=== PATIENT | male | born 1960 | race Caucasian/White ===

== ENCOUNTER 2020-08-19 06:00 | Inpatient (IN) ==
[2020-08-19] MEDS ORDERED: cefTRIAXone 1,000 MG in Water for inj. (sterile) 10 ML IVP ONE (06:05)
[2020-08-19] MEDS ORDERED: Pantoprazole 80 MG in 0.9 % Sodium Chloride 50 ML IVPB ONE (06:05)
[2020-08-19] MEDS ORDERED: 0.9 % Sodium Chloride 1,000 ML IVC ONE (06:05)
[2020-08-19] MEDS ORDERED: Octreotide 50 MCG/ML INJ IVP ONE (06:05)
[2020-08-19] MEDS ORDERED: Metoclopramide 10 MG/2 ML VIAL IVP ONE (06:07)
[2020-08-19] MEDS ORDERED: Pantoprazole 40 MG in 0.9 % Sodium Chloride Mini Bag 100 ML IVC SCH (06:15)
[2020-08-19 06:40] LABS: INR 1.4; Prothrombin Time 15.8 Seconds (9.4-12.1)
[2020-08-19 06:42] LABS: Activated Partial Thrombo Time 27.2 Seconds (26.0-36.0); Basophils # 0.2 K/mcL (0.0-0.2); Basophils % 2.3 %; Eosinophils # 0.2 K/mcL (0.0-0.6); Eosinophils % 2.4 %; Hematocrit 23.4 % (37.5-50.1); Immature Granulocytes % 0.6 % (0-4); Lymphocytes # 1.1 K/mcL (0.6-4.6); Lymphocytes % 12.6 %; Mean Corpuscular HGB Conc 30.3 g/dL (31.6-35.5); Mean Corpuscular Hemoglobin 26.2 pg (28.0-33.3); Mean Corpuscular Volume 86.3 fL (83.0-100.0); Mean Platelet Volume 9.7 fL (9.4-12.4); Monocytes # 1.1 K/mcL (0.0-1.3); Monocytes % 13.1 %; Neutrophils # 5.8 K/mcL (1.6-8.9); Nucleated Red Blood Cells 0.2 /100 WBC (0); Platelet Count 158 K/mcL (140-400); Red Blood Count 2.71 M/mcL (4.19-5.50); Red Cell Distribution Width 16.2 % (11.5-14.5); White Blood Count 8.4 K/mcL (4.3-11.1)
[2020-08-19 06:43] LABS: Hemoglobin 7.1 g/dL (12.9-16.9)
[2020-08-19] MEDS ORDERED: Octreotide 400 MCG in 0.9 % Sodium Chloride 100 ML IVC SCH (07:00)
[2020-08-19 07:01] LABS: Alanine Aminotransferase 70 Units/L (7-52); Albumin 2.7 g/dL (3.5-5.7); Albumin/Globulin Ratio 0.7 (1.1-2.2); Alkaline Phosphatase 109 Units/L (34-104); Aspartate Amino Transferase 135 Units/L (13-39); BUN/Creatinine Ratio 12 (6-26); Bilirubin,Total 2.1 mg/dL (0.3-1.0); Blood Urea Nitrogen 13 mg/dL (8-23); Calcium 8.2 mg/dL (8.6-10.3); Carbon Dioxide 23 mEq/L (23-29); Chloride 103 mEq/L (98-107); Globulin 3.9 g/dL (2.4-3.5); Glucose 132 mg/dL (70-105); Lipase 53 Units/L (11-82); Magnesium 1.9 mg/dL (1.6-2.6); Osmolality,Calculated 286 (280-300); Sodium 137 mEq/L (136-145); Total Protein 6.6 g/dL (6.4-8.9); Troponin I < 0.03 ng/mL (< 0.04); eGFR For African Americans > 60 (> 60); eGFR For Non-African Americans > 60 (> 60)
[2020-08-19] MEDS ORDERED: 0.9 % Sodium Chloride 250 ML ONE ×2 (08:14→14:22)
[2020-08-19] MEDS ORDERED: Ondansetron 4 MG/2 ML VIAL IVP PRN (08:46)
[2020-08-19] MEDS ORDERED: Ringers Solution, Lactated 1,000 ML IVC ONE ×2 (08:50→15:45)
[2020-08-19 12:22] LABS: Hemoglobin 7.3 g/dL (12.9-16.9); Mean Corpuscular HGB Conc 30.4 g/dL (31.6-35.5); Mean Corpuscular Hemoglobin 26.7 pg (28.0-33.3); Mean Corpuscular Volume 87.9 fL (83.0-100.0); Mean Platelet Volume 9.8 fL (9.4-12.4); Platelet Count 124 K/mcL (140-400); Red Blood Count 2.73 M/mcL (4.19-5.50); White Blood Count 9.2 K/mcL (4.3-11.1)
[2020-08-19] MEDS ORDERED: Lidocaine -MPF 2% 2 ML VIAL ONE (13:28)
[2020-08-19] MEDS ORDERED: *HR* PHENYLEPHRINE 1,000 MCG/10 ML SYRINGE IVP ONE (13:28)
[2020-08-19] MEDS ORDERED: Nitroglycerin 0.4 MG TAB.SUBL SL PRN (15:46)
[2020-08-19] MEDS: *HR* OxyCODONE Immed Rel 5 MG TABLET PO PRN ×2 (15:55→20:56)
[2020-08-19] MEDS: Lactulose Oral Soln 20 GM/30 ML UDC PO SCH (20:56)
[2020-08-19] MEDS ORDERED: *HR* LORazepam 2 MG/ML VIAL IVP PRN ×3 (22:18)
[2020-08-19] MEDS: Octreotide 400 MCG in 0.9 % Sodium Chloride 100 ML IVC SCH (22:40)
[2020-08-20 02:20] LABS: Hematocrit 26.3 % (37.5-50.1); Hemoglobin 8.2 g/dL (12.9-16.9); Mean Corpuscular HGB Conc 31.2 g/dL (31.6-35.5); Mean Corpuscular Hemoglobin 27.4 pg (28.0-33.3); Mean Platelet Volume 10.3 fL (9.4-12.4); Platelet Count 124 K/mcL (140-400); Red Blood Count 2.99 M/mcL (4.19-5.50); Red Cell Distribution Width 15.9 % (11.5-14.5); White Blood Count 11.9 K/mcL (4.3-11.1)
[2020-08-20 02:23] LABS: INR 1.4; Prothrombin Time 16.2 Seconds (9.4-12.1)
[2020-08-20 02:41] LABS: Alanine Aminotransferase 192 Units/L (7-52); Albumin 2.9 g/dL (3.5-5.7); Albumin/Globulin Ratio 0.7 (1.1-2.2); Alkaline Phosphatase 102 Units/L (34-104); Aspartate Amino Transferase 438 Units/L (13-39); BUN/Creatinine Ratio 24 (6-26); Bilirubin,Total 3.7 mg/dL (0.3-1.0); Blood Urea Nitrogen 18 mg/dL (8-23); Calcium 7.8 mg/dL (8.6-10.3); Carbon Dioxide 23 mEq/L (23-29); Chloride 105 mEq/L (98-107); Globulin 4.1 g/dL (2.4-3.5); Glucose 141 mg/dL (70-105); Osmolality,Calculated 282 (280-300); Potassium 4.3 mEq/L (3.5-5.1); Sodium 134 mEq/L (136-145); eGFR For African Americans > 60 (> 60); eGFR For Non-African Americans > 60 (> 60)
[2020-08-20] MEDS: *HR* OxyCODONE Immed Rel 5 MG TABLET PO PRN (06:27)
[2020-08-20] MEDS: Thiamine (B-1) 100 MG TABLET PO SCH (07:57)
[2020-08-20] MEDS: Lactulose Oral Soln 20 GM/30 ML UDC PO SCH ×2 (07:57→20:38)
[2020-08-20] MEDS: Vitamin B Complex/Vit C/Vit E 1 EACH TABLET PO SCH (07:57)
[2020-08-20] MEDS: cefTRIAXone 1,000 MG in Water for inj. (sterile) 10 ML IVP SCH (07:57)
[2020-08-20] MEDS: Octreotide 400 MCG in 0.9 % Sodium Chloride 100 ML IVC SCH ×2 (07:58→16:47)
[2020-08-20 09:40] LABS: Hematocrit 24.6 % (37.5-50.1); Hemoglobin 7.8 g/dL (12.9-16.9)
[2020-08-20] MEDS: Folic Acid 1 MG TABLET PO SCH (10:14)
[2020-08-20 14:55] LABS: Hematocrit 24.6 % (37.5-50.1); Hemoglobin 7.8 g/dL (12.9-16.9)
[2020-08-20 21:51] LABS: Hematocrit 24.3 % (37.5-50.1); Hemoglobin 7.6 g/dL (12.9-16.9)
[2020-08-21] MEDS: Octreotide 400 MCG in 0.9 % Sodium Chloride 100 ML IVC SCH ×2 (03:38→13:56)
[2020-08-21 05:43] LABS: INR 1.5; Prothrombin Time 17.5 Seconds (9.4-12.1)
[2020-08-21 06:02] LABS: Alanine Aminotransferase 169 Units/L (7-52); Albumin 2.6 g/dL (3.5-5.7); Albumin/Globulin Ratio 0.7 (1.1-2.2); Alkaline Phosphatase 98 Units/L (34-104); Aspartate Amino Transferase 265 Units/L (13-39); BUN/Creatinine Ratio 19 (6-26); Bilirubin,Direct 1.6 mg/dL (0.0-0.2); Bilirubin,Indirect 2.4 mg/dL (0.0-1.0); Blood Urea Nitrogen 14 mg/dL (8-23); Calcium 7.7 mg/dL (8.6-10.3); Carbon Dioxide 24 mEq/L (23-29); Chloride 104 mEq/L (98-107); Globulin 3.6 g/dL (2.4-3.5); Glucose 134 mg/dL (70-105); Osmolality,Calculated 276 (280-300); Potassium 3.7 mEq/L (3.5-5.1); Sodium 132 mEq/L (136-145); Total Protein 6.2 g/dL (6.4-8.9); eGFR For African Americans > 60 (> 60); eGFR For Non-African Americans > 60 (> 60)
[2020-08-21 06:35] LABS: Hemoglobin 7.1 g/dL (12.9-16.9)
[2020-08-21 06:37] LABS: Basophils # 0.1 K/mcL (0.0-0.2); Basophils % 0.8 %; Eosinophils # 0.1 K/mcL (0.0-0.6); Hematocrit 23.2 % (37.5-50.1); Immature Platelets 4.3 % (1.1-6.1); Lymphocytes # 1.2 K/mcL (0.6-4.6); Lymphocytes % 9.5 %; Mean Corpuscular HGB Conc 30.6 g/dL (31.6-35.5); Mean Corpuscular Hemoglobin 27.3 pg (28.0-33.3); Mean Corpuscular Volume 89.2 fL (83.0-100.0); Mean Platelet Volume 10.2 fL (9.4-12.4); Monocytes # 1.9 K/mcL (0.0-1.3); Monocytes % 15.5 %; Neutrophils # 8.8 K/mcL (1.6-8.9); Red Cell Distribution Width 16.9 % (11.5-14.5); Segmented Neutrophils % 72.2 %; White Blood Count 12.2 K/mcL (4.3-11.1)
[2020-08-21 06:55] LABS: Platelet Count 70 K/mcL (140-400); Platelet Estimate Slight Decrease (Normal)
[2020-08-21] MEDS: ARIPiprazole 2 MG TABLET PO SCH (08:08)
[2020-08-21] MEDS: Folic Acid 1 MG TABLET PO SCH (08:08)
[2020-08-21] MEDS: Vitamin B Complex/Vit C/Vit E 1 EACH TABLET PO SCH (08:08)
[2020-08-21] MEDS: Thiamine (B-1) 100 MG TABLET PO SCH (08:08)
[2020-08-21] MEDS: cefTRIAXone 1,000 MG in Water for inj. (sterile) 10 ML IVP SCH (08:09)
[2020-08-21] MEDS: Lactulose Oral Soln 20 GM/30 ML UDC PO SCH ×2 (08:10→20:21)
[2020-08-21] MEDS: *HR* OxyCODONE Immed Rel 5 MG TABLET PO PRN ×3 (08:13→20:21)
[2020-08-21 13:22] LABS: Hematocrit 23.3 % (37.5-50.1); Hemoglobin 7.2 g/dL (12.9-16.9)
[2020-08-21 20:21] LABS: Hemoglobin 7.4 g/dL (12.9-16.9)
[2020-08-22] MEDS: *HR* OxyCODONE Immed Rel 5 MG TABLET PO PRN ×3 (01:40→20:45)
[2020-08-22] MEDS: Octreotide 400 MCG in 0.9 % Sodium Chloride 100 ML IVC SCH ×4 (02:22→18:21)
[2020-08-22 05:41] LABS: BUN/Creatinine Ratio 18 (6-26); Blood Urea Nitrogen 13 mg/dL (8-23); Calcium 7.4 mg/dL (8.6-10.3); Carbon Dioxide 24 mEq/L (23-29); Chloride 101 mEq/L (98-107); Glucose 113 mg/dL (70-105); Osmolality,Calculated 269 (280-300); Potassium 3.6 mEq/L (3.5-5.1); Sodium 129 mEq/L (136-145); eGFR For African Americans > 60 (> 60); eGFR For Non-African Americans > 60 (> 60)
[2020-08-22] MEDS: cefTRIAXone 1,000 MG in Water for inj. (sterile) 10 ML IVP SCH (08:11)
[2020-08-22] MEDS: Folic Acid 1 MG TABLET PO SCH (08:11)
[2020-08-22] MEDS: Vitamin B Complex/Vit C/Vit E 1 EACH TABLET PO SCH (08:11)
[2020-08-22] MEDS: Thiamine (B-1) 100 MG TABLET PO SCH (08:11)
[2020-08-22] MEDS: Lactulose Oral Soln 20 GM/30 ML UDC PO SCH (08:11)
[2020-08-22] MEDS: ARIPiprazole 2 MG TABLET PO SCH (08:11)
[2020-08-22 09:07] LABS: VBG Ionized Calcium 1.04 mmol/L (1.15-1.35)
[2020-08-22] MEDS ORDERED: 0.9 % Sodium Chloride 250 ML IVC SCH (12:45)
[2020-08-22 12:52] LABS: Hematocrit 23.9 % (37.5-50.1); Hemoglobin 7.3 g/dL (12.9-16.9)
[2020-08-22] MEDS ORDERED: Calcium Gluconate 1gm/50mL 1 GM/50 ML BAG IVPB ONE (17:25)
[2020-08-22 22:07] LABS: Hematocrit 26.7 % (37.5-50.1); Hemoglobin 8.4 g/dL (12.9-16.9)
[2020-08-23 01:29] LABS: Eosinophils % 2.7 %; Hemoglobin 7.9 g/dL (12.9-16.9); Red Cell Distribution Width 17.1 % (11.5-14.5); Segmented Neutrophils % 70.4 %
[2020-08-23 01:31] LABS: Basophils # 0.1 K/mcL (0.0-0.2); Basophils % 1.1 %; Eosinophils # 0.3 K/mcL (0.0-0.6); Hematocrit 25.2 % (37.5-50.1); Immature Granulocytes % 0.7 % (0-4); Immature Platelets 3.2 % (1.1-6.1); Lymphocytes # 1.3 K/mcL (0.6-4.6); Mean Corpuscular HGB Conc 31.3 g/dL (31.6-35.5); Mean Corpuscular Hemoglobin 28.4 pg (28.0-33.3); Mean Corpuscular Volume 90.6 fL (83.0-100.0); Mean Platelet Volume 10.4 fL (9.4-12.4); Monocytes # 1.6 K/mcL (0.0-1.3); Monocytes % 14.1 %; Nucleated Red Blood Cells 0.3 /100 WBC (0); Platelet Count 102 K/mcL (140-400); Red Blood Count 2.78 M/mcL (4.19-5.50); White Blood Count 11.4 K/mcL (4.3-11.1)
[2020-08-23 01:49] LABS: BUN/Creatinine Ratio 15 (6-26); Blood Urea Nitrogen 11 mg/dL (8-23); Calcium 7.6 mg/dL (8.6-10.3); Carbon Dioxide 26 mEq/L (23-29); Chloride 99 mEq/L (98-107); Glucose 112 mg/dL (70-105); Osmolality,Calculated 268 (280-300); Potassium 3.3 mEq/L (3.5-5.1); Sodium 129 mEq/L (136-145); eGFR For African Americans > 60 (> 60); eGFR For Non-African Americans > 60 (> 60)
[2020-08-23] MEDS: *HR* OxyCODONE Immed Rel 5 MG TABLET PO PRN (04:45)
[2020-08-23] MEDS: Octreotide 400 MCG in 0.9 % Sodium Chloride 100 ML IVC SCH ×2 (04:48→07:43)
[2020-08-23] MEDS: Lactulose Oral Soln 20 GM/30 ML UDC PO SCH ×2 (07:44→09:29)
[2020-08-23] MEDS: cefTRIAXone 1,000 MG in Water for inj. (sterile) 10 ML IVP SCH (09:29)
[2020-08-23] MEDS: Thiamine (B-1) 100 MG TABLET PO SCH (09:30)
[2020-08-23] MEDS: Vitamin B Complex/Vit C/Vit E 1 EACH TABLET PO SCH (09:31)
[2020-08-23] MEDS: Folic Acid 1 MG TABLET PO SCH (09:31)
[2020-08-23] MEDS: ARIPiprazole 2 MG TABLET PO SCH (09:31)
[2020-08-23 10:26] VITALS: BP 116/64
== END 2020-08-23 14:15 | disposition home or self-care (01) | DRG 432 ==
LOC: EMEROOARM 06:00 → 3ANU 06:00 → SUATTDRO 08-20 14:15
PROVIDERS: ADMIT Internal Medicine; ATTEND General Practice

== ENCOUNTER 2020-08-26 03:50 | Observation (INO) ==
[2020-08-26 04:35] LABS: Basophils # 0.2 K/mcL (0.0-0.2); Basophils % 1.5 %; Eosinophils # 0.5 K/mcL (0.0-0.6); Eosinophils % 4.7 %; Hematocrit 29.6 % (37.5-50.1); Hemoglobin 9.2 g/dL (12.9-16.9); Immature Granulocytes % 1.3 % (0-4); Lymphocytes # 2.1 K/mcL (0.6-4.6); Lymphocytes % 21.6 %; Mean Corpuscular HGB Conc 31.1 g/dL (31.6-35.5); Mean Corpuscular Hemoglobin 27.7 pg (28.0-33.3); Mean Corpuscular Volume 89.2 fL (83.0-100.0); Mean Platelet Volume 9.2 fL (9.4-12.4); Monocytes # 1.4 K/mcL (0.0-1.3); Monocytes % 14.2 %; Neutrophils # 5.6 K/mcL (1.6-8.9); Nucleated Red Blood Cells 0.2 /100 WBC (0); Platelet Count 176 K/mcL (140-400); Red Blood Count 3.32 M/mcL (4.19-5.50); Segmented Neutrophils % 56.7 %; White Blood Count 9.9 K/mcL (4.3-11.1)
[2020-08-26 04:55] LABS: Alanine Aminotransferase 74 Units/L (7-52); Albumin/Globulin Ratio 0.6 (1.1-2.2); Alkaline Phosphatase 113 Units/L (34-104); Aspartate Amino Transferase 68 Units/L (13-39); BUN/Creatinine Ratio 9 (6-26); Bilirubin,Total 2.9 mg/dL (0.3-1.0); Blood Urea Nitrogen 8 mg/dL (8-23); Calcium 8.2 mg/dL (8.6-10.3); Carbon Dioxide 22 mEq/L (23-29); Chloride 102 mEq/L (98-107); Globulin 4.7 g/dL (2.4-3.5); Glucose 98 mg/dL (70-105); Osmolality,Calculated 276 (280-300); Potassium 3.3 mEq/L (3.5-5.1); Sodium 134 mEq/L (136-145); Total Protein 7.7 g/dL (6.4-8.9); eGFR For African Americans > 60 (> 60); eGFR For Non-African Americans > 60 (> 60)
[2020-08-26 05:04] LABS: INR 1.3; Prothrombin Time 14.5 Seconds (9.4-12.1); Troponin I < 0.03 ng/mL (< 0.04)
[2020-08-26 05:07] LABS: Activated Partial Thrombo Time 27.5 Seconds (26.0-36.0)
[2020-08-26] MEDS ORDERED: Potassium Chloride Elixir 20 MEQ/15 ML UDC PO ONE (05:07)
[2020-08-26] MEDS ORDERED: Isovue-370 500 ML BOTTLE IVP ONE (05:10)
[2020-08-26 05:28] LABS: Lipase 71 Units/L (11-82)
[2020-08-26] MEDS ORDERED: Naloxone 0.4 MG/ML INJ IVP PRN (06:39)
[2020-08-26] MEDS ORDERED: Ondansetron 4 MG/2 ML VIAL IVP PRN (06:39)
[2020-08-26 07:23] LABS: Adenovirus Not Detected (Not Detect); Coronavirus 229E Not Detected (Not Detect); Coronavirus HKU1 Not Detected (Not Detect); Coronavirus NL63 Not Detected (Not Detect); Coronavirus OC43 Not Detected (Not Detect); Human Metapneumovirus Not Detected (Not Detect); Human Rhinovirus/Enterovirus Not Detected (Not Detect); SARS-CoV-2 Not Detected (Not Detect)
[2020-08-26 07:24] LABS: Bordetella Pertussis Not Detected (Not Detect); Chlamydophila pneumoniae Not Detected (Not Detect); Influenza A Subtype 2009 H1 Not Detected (Not Detect); Influenza B Not Detected (Not Detect); Mycoplasma pneumoniae Not Detected (Not Detect); Parainfluenza Virus 1 Not Detected (Not Detect); Parainfluenza Virus 2 Not Detected (Not Detect); Parainfluenza Virus 3 Not Detected (Not Detect); Parainfluenza Virus 4 Not Detected (Not Detect); Respiratory Syncytial Virus Not Detected (Not Detect)
[2020-08-26] MEDS ORDERED: Furosemide 40 MG TABLET PO SCH (09:00)
[2020-08-26] MEDS ORDERED: Furosemide 20 MG TABLET PO ONE (12:15)
[2020-08-26] MEDS: Albumin 25% 25gram/100mL 25 GM/100 ML IV.SOLN IVPB SCH ×4 (12:31→22:54)
[2020-08-26 13:45] LABS: RBC,Peritoneal Fluid < 2000 RBC/mcL
[2020-08-26 14:24] LABS: Amylase,Peritoneal Fluid < 10 Units/L (No Ref Range); Glucose,Peritoneal Fluid 104 mg/dL (No Ref Range); LDH,Peritoneal Fluid 35 Units/L (No Ref Range); Total Protein,Peritoneal Fluid < 2.0 g/dL
[2020-08-26 14:54] LABS: Basophils,Peritoneal Fluid 0 %
[2020-08-26 14:55] LABS: Appearance of Peritoneal Fl CLEAR (Clear)
[2020-08-26 17:07] LABS: % Iron Saturation 4 % (20-55); Iron 12 mcg/dL (65-175); Transferrin 242 mg/dL (203-362)
[2020-08-26 17:25] LABS: Ferritin 24 ng/mL (20-250)
[2020-08-26 17:30] LABS: Hepatitis B Surface Antigen Nonreactive (Nonreactive)
[2020-08-26 18:00] LABS: Hepatitis C Virus Antibody Nonreactive (Nonreactive)
[2020-08-26 18:02] LABS: Hepatitis A Antibody IgM Nonreactive (Nonreactive)
[2020-08-26 18:04] LABS: Hepatitis B Core IgM Nonreactive (Nonreactive)
[2020-08-26] MEDS: *HR* Heparin 5,000 UNIT/ML VIAL SQ SCH (18:05)
[2020-08-27 05:31] LABS: Basophils # 0.1 K/mcL (0.0-0.2); Eosinophils # 0.2 K/mcL (0.0-0.6); Eosinophils % 3.6 %; Hematocrit 25.1 % (37.5-50.1); Hemoglobin 7.7 g/dL (12.9-16.9); Immature Granulocytes % 0.3 % (0-4); Lymphocytes # 1.1 K/mcL (0.6-4.6); Lymphocytes % 17.7 %; Mean Corpuscular HGB Conc 30.7 g/dL (31.6-35.5); Mean Corpuscular Hemoglobin 27.4 pg (28.0-33.3); Mean Corpuscular Volume 89.3 fL (83.0-100.0); Monocytes # 0.9 K/mcL (0.0-1.3); Monocytes % 14.7 %; Platelet Count 100 K/mcL (140-400); Red Blood Count 2.81 M/mcL (4.19-5.50); Red Cell Distribution Width 17.6 % (11.5-14.5); Segmented Neutrophils % 62.7 %; White Blood Count 6.3 K/mcL (4.3-11.1)
[2020-08-27 05:53] LABS: Alanine Aminotransferase 46 Units/L (7-52); Albumin 3.3 g/dL (3.5-5.7); Albumin/Globulin Ratio 0.9 (1.1-2.2); Alkaline Phosphatase 90 Units/L (34-104); Aspartate Amino Transferase 51 Units/L (13-39); BUN/Creatinine Ratio 12 (6-26); Bilirubin,Total 3.1 mg/dL (0.3-1.0); Blood Urea Nitrogen 9 mg/dL (8-23); Calcium 8.4 mg/dL (8.6-10.3); Carbon Dioxide 27 mEq/L (23-29); Chloride 103 mEq/L (98-107); Globulin 3.6 g/dL (2.4-3.5); Glucose 102 mg/dL (70-105); Osmolality,Calculated 281 (280-300); Potassium 3.5 mEq/L (3.5-5.1); Sodium 136 mEq/L (136-145); Total Protein 6.9 g/dL (6.4-8.9); eGFR For African Americans > 60 (> 60); eGFR For Non-African Americans > 60 (> 60)
[2020-08-27] MEDS: *HR* Heparin 5,000 UNIT/ML VIAL SQ SCH ×2 (06:12→17:34)
[2020-08-27] MEDS: Albumin 25% 25gram/100mL 25 GM/100 ML IV.SOLN IVPB SCH ×4 (07:44→22:29)
[2020-08-27] MEDS: Furosemide 40 MG TABLET PO SCH (07:44)
[2020-08-27] MEDS ORDERED: Acetaminophen 325 MG TABLET PO PRN (20:57)
[2020-08-28] MEDS: *HR* Heparin 5,000 UNIT/ML VIAL SQ SCH (05:24)
[2020-08-28 05:25] LABS: Hematocrit 24.6 % (37.5-50.1); Hemoglobin 7.6 g/dL (12.9-16.9); Immature Platelets 2.9 % (1.1-6.1); Mean Corpuscular HGB Conc 30.9 g/dL (31.6-35.5); Mean Corpuscular Hemoglobin 27.2 pg (28.0-33.3); Mean Corpuscular Volume 88.2 fL (83.0-100.0); Mean Platelet Volume 9.4 fL (9.4-12.4); Red Blood Count 2.79 M/mcL (4.19-5.50); Red Cell Distribution Width 17.3 % (11.5-14.5); White Blood Count 5.1 K/mcL (4.3-11.1)
[2020-08-28 05:44] LABS: BUN/Creatinine Ratio 11 (6-26); Blood Urea Nitrogen 8 mg/dL (8-23); Calcium 8.8 mg/dL (8.6-10.3); Carbon Dioxide 24 mEq/L (23-29); Chloride 103 mEq/L (98-107); Glucose 100 mg/dL (70-105); Osmolality,Calculated 280 (280-300); Potassium 3.2 mEq/L (3.5-5.1); Sodium 136 mEq/L (136-145); eGFR For African Americans > 60 (> 60); eGFR For Non-African Americans > 60 (> 60)
[2020-08-28 07:27] VITALS: BP 105/62
[2020-08-28] MEDS: Furosemide 40 MG TABLET PO SCH (08:22)
[2020-08-28] MEDS: Albumin 25% 25gram/100mL 25 GM/100 ML IV.SOLN IVPB SCH ×2 (08:27→10:10)
[2020-08-28] MEDS ORDERED: Folic Acid 1 MG TABLET PO SCH (09:00)
[2020-08-28] MEDS ORDERED: Thiamine (B-1) 100 MG TABLET PO SCH (09:00)
[2020-08-28] MEDS ORDERED: Albumin 25% 25gram/100mL 25 GM/100 ML IV.SOLN IVPB SCH (20:00)
[2020-08-29 10:39] LABS: F-Actin (sm muscle) Ab IgG 22 Units (0-19)
[2020-08-29 11:26] LABS: Serine Protease-3 Antibody 6 AU/mL (0-19)
[2020-08-29 18:26] LABS: ANA IgG by ELISA NONE DETECTED (None Detected)
== END 2020-08-28 11:55 | disposition home or self-care (01) ==
LOC: SUATTDRO → 3ANU 03:50 → EMEROOARM 03:50 → SUATTDRO 07:56 → 3ANU 09:41
PROVIDERS: ADMIT Student in an Organized Health Care Education/Training Program; ATTEND Internal Medicine

== ENCOUNTER 2020-08-31 10:14 | Observation (INO) ==
[2020-08-31 11:33] LABS: Basophils # 0.1 K/mcL (0.0-0.2); Basophils % 1.6 %; Eosinophils # 0.3 K/mcL (0.0-0.6); Hemoglobin 8.7 g/dL (12.9-16.9); Immature Granulocytes % 0.5 % (0-4); Lymphocytes # 1.4 K/mcL (0.6-4.6); Lymphocytes % 18.1 %; Mean Corpuscular Hemoglobin 26.4 pg (28.0-33.3); Mean Corpuscular Volume 88.1 fL (83.0-100.0); Mean Platelet Volume 9.5 fL (9.4-12.4); Monocytes # 0.9 K/mcL (0.0-1.3); Monocytes % 11.5 %; Platelet Count 179 K/mcL (140-400); Red Blood Count 3.29 M/mcL (4.19-5.50); Red Cell Distribution Width 18.3 % (11.5-14.5); Segmented Neutrophils % 64.3 %; White Blood Count 7.7 K/mcL (4.3-11.1)
[2020-08-31 11:37] LABS: Alanine Aminotransferase 48 Units/L (7-52); Albumin 4.5 g/dL (3.5-5.7); Albumin/Globulin Ratio 1.1 (1.1-2.2); Alkaline Phosphatase 94 Units/L (34-104); Aspartate Amino Transferase 73 Units/L (13-39); BUN/Creatinine Ratio 8 (6-26); Bilirubin,Direct 0.8 mg/dL (0.0-0.2); Bilirubin,Indirect 1.1 mg/dL (0.0-1.0); Bilirubin,Total 1.9 mg/dL (0.3-1.0); Blood Urea Nitrogen 9 mg/dL (8-23); Calcium 9.5 mg/dL (8.6-10.3); Carbon Dioxide 24 mEq/L (23-29); Chloride 102 mEq/L (98-107); Globulin 4.1 g/dL (2.4-3.5); Glucose 145 mg/dL (70-105); Lipase 108 Units/L (11-82); Osmolality,Calculated 283 (280-300); Potassium 3.5 mEq/L (3.5-5.1); Sodium 136 mEq/L (136-145); Total Protein 8.6 g/dL (6.4-8.9); Troponin I < 0.03 ng/mL (< 0.04); eGFR For African Americans > 60 (> 60); eGFR For Non-African Americans > 60 (> 60)
[2020-08-31 11:43] LABS: INR 1.4; Prothrombin Time 15.8 Seconds (9.4-12.1)
[2020-08-31] MEDS ORDERED: 0.9 % Sodium Chloride 500 ML IVC ONE (11:53)
[2020-08-31 13:21] LABS: Bilirubin,Urine Negative (Negative); Blood,Urine Negative (Negative); Clarity,Urine Clear (Clear); Color,Urine Yellow (Yellow); Glucose,Urine (UA) Normal (Normal); Ketones,Urine Negative (Negative); Leukocyte Esterase,Urine Negative (Negative); Nitrite,Urine Negative (Negative); Protein,Urine Negative (Neg-Trace); Specific Gravity,Urine 1.018 (1.010-1.025)
[2020-08-31] MEDS ORDERED: Mag Hydrox/Al Hydrox/Simeth 30 ML UDC PO PRN (14:58)
[2020-08-31] MEDS ORDERED: *HR* HYDROcodone/Acet 5/325 mg TABLET PO PRN (14:58)
[2020-08-31] MEDS ORDERED: Naloxone 0.4 MG/ML INJ IVP PRN (14:58)
[2020-08-31] MEDS ORDERED: MOM Conc 10 ML UD.LIQ PO PRN (14:58)
[2020-08-31] MEDS ORDERED: Ondansetron 4 MG/2 ML VIAL IVP PRN (14:58)
[2020-08-31] MEDS ORDERED: Loratadine 10 MG TABLET PO PRN (14:59)
[2020-08-31] MEDS ORDERED: *HR* LORazepam 2 MG/ML VIAL IVP PRN ×2 (15:30)
[2020-08-31] MEDS: Lactulose Oral Soln 20 GM/30 ML UDC PO SCH (19:47)
[2020-09-01 02:37] LABS: Basophils # 0.1 K/mcL (0.0-0.2); Basophils % 1.1 %; Eosinophils # 0.2 K/mcL (0.0-0.6); Eosinophils % 3.3 %; Hemoglobin 8.6 g/dL (12.9-16.9); Immature Granulocytes % 0.4 % (0-4); Lymphocytes # 1.1 K/mcL (0.6-4.6); Lymphocytes % 14.4 %; Mean Corpuscular HGB Conc 30.7 g/dL (31.6-35.5); Mean Corpuscular Volume 88.1 fL (83.0-100.0); Mean Platelet Volume 9.2 fL (9.4-12.4); Monocytes # 0.9 K/mcL (0.0-1.3); Monocytes % 12.2 %; Platelet Count 132 K/mcL (140-400); Red Blood Count 3.18 M/mcL (4.19-5.50); Red Cell Distribution Width 18.2 % (11.5-14.5); Segmented Neutrophils % 68.6 %; White Blood Count 7.3 K/mcL (4.3-11.1)
[2020-09-01 02:40] LABS: BUN/Creatinine Ratio 10 (6-26); Blood Urea Nitrogen 8 mg/dL (8-23); Calcium 8.8 mg/dL (8.6-10.3); Carbon Dioxide 24 mEq/L (23-29); Chloride 106 mEq/L (98-107); Glucose 118 mg/dL (70-105); Magnesium 1.9 mg/dL (1.6-2.6); Osmolality,Calculated 283 (280-300); Phosphorous 2.2 mg/dL (2.7-4.5); Sodium 137 mEq/L (136-145); eGFR For African Americans > 60 (> 60); eGFR For Non-African Americans > 60 (> 60)
[2020-09-01] MEDS: *HR* LORazepam 2 MG/ML VIAL IVP PRN ×3 (05:03→20:31)
[2020-09-01] MEDS ORDERED: Furosemide 40 MG TABLET PO SCH (09:00)
[2020-09-01] MEDS: Lactulose Oral Soln 20 GM/30 ML UDC PO SCH ×2 (09:24→20:30)
[2020-09-01] MEDS: Cholecalciferol (D-3) 1,000 UNIT (25MCG) TABLET PO SCH (09:24)
[2020-09-01] MEDS: ARIPiprazole 2 MG TABLET PO SCH (09:24)
[2020-09-01] MEDS: Vitamin B Complex/Vit C/Vit E 1 EACH TABLET PO SCH (09:24)
[2020-09-01] MEDS: Thiamine (B-1) 100 MG TABLET PO SCH (09:25)
[2020-09-01] MEDS: Folic Acid 1 MG TABLET PO SCH (09:25)
[2020-09-01] MEDS: Albumin Human 5% 12.5 GM/250 ML IV.SOLN IVC SCH ×2 (10:32→14:39)
[2020-09-02] MEDS: *HR* LORazepam 2 MG/ML VIAL IVP PRN (04:44)
[2020-09-02] MEDS: Cholecalciferol (D-3) 1,000 UNIT (25MCG) TABLET PO SCH (08:08)
[2020-09-02] MEDS: Thiamine (B-1) 100 MG TABLET PO SCH (08:08)
[2020-09-02] MEDS: ARIPiprazole 2 MG TABLET PO SCH (08:08)
[2020-09-02] MEDS: Vitamin B Complex/Vit C/Vit E 1 EACH TABLET PO SCH (08:08)
[2020-09-02] MEDS: Lactulose Oral Soln 20 GM/30 ML UDC PO SCH (08:08)
[2020-09-02] MEDS: Folic Acid 1 MG TABLET PO SCH (08:08)
[2020-09-02] MEDS ORDERED: Albumin Human 5% 12.5 GM/250 ML IV.SOLN IVC SCH (08:15)
[2020-09-02 14:04] VITALS: BP 95/58
== END 2020-09-02 15:07 | disposition home or self-care (01) ==
LOC: 3ANU 10:14 → EMEROOARM 10:14 → SUATTDRO 14:16 → 3ANU 15:32
PROVIDERS: ADMIT Internal Medicine; ATTEND Internal Medicine

== ENCOUNTER 2020-09-09 06:18 | Inpatient (IN) ==
[2020-09-09] MEDS ORDERED: Ipratropium/Albuterol Neb 3 ML IH ONE (06:42)
[2020-09-09 07:00] LABS: Basophils # 0.2 K/mcL (0.0-0.2); Basophils % 1.6 %; Eosinophils # 0.3 K/mcL (0.0-0.6); Eosinophils % 2.2 %; Hematocrit 38.3 % (37.5-50.1); Hemoglobin 11.8 g/dL (12.9-16.9); Immature Granulocytes % 0.5 % (0-4); Mean Corpuscular HGB Conc 30.8 g/dL (31.6-35.5); Mean Corpuscular Hemoglobin 26.5 pg (28.0-33.3); Mean Corpuscular Volume 86.1 fL (83.0-100.0); Mean Platelet Volume 9.5 fL (9.4-12.4); Monocytes # 1.9 K/mcL (0.0-1.3); Monocytes % 14.9 %; Neutrophils # 8.2 K/mcL (1.6-8.9); Platelet Count 243 K/mcL (140-400); Red Blood Count 4.45 M/mcL (4.19-5.50); Red Cell Distribution Width 19.8 % (11.5-14.5); Segmented Neutrophils % 64.8 %; White Blood Count 12.6 K/mcL (4.3-11.1)
[2020-09-09 07:18] LABS: BUN/Creatinine Ratio 12 (6-26); Blood Urea Nitrogen 18 mg/dL (8-23); Carbon Dioxide 25 mEq/L (23-29); Chloride 93 mEq/L (98-107); Glucose 128 mg/dL (70-105); Osmolality,Calculated 272 (280-300); Potassium 4.1 mEq/L (3.5-5.1); Sodium 129 mEq/L (136-145); Troponin I < 0.03 ng/mL (< 0.04); eGFR For African Americans 56 (> 60); eGFR For Non-African Americans 46 (> 60)
[2020-09-09 07:25] LABS: Alanine Aminotransferase 54 Units/L (7-52); Albumin 4.7 g/dL (3.5-5.7); Albumin/Globulin Ratio 0.9 (1.1-2.2); Alkaline Phosphatase 115 Units/L (34-104); Amylase 33 Units/L (29-103); Aspartate Amino Transferase 86 Units/L (13-39); Bilirubin,Direct 1.2 mg/dL (0.0-0.2); Bilirubin,Indirect 3.3 mg/dL (0.0-1.0); Bilirubin,Total 4.5 mg/dL (0.3-1.0); Globulin 5.3 g/dL (2.4-3.5); Lipase 26 Units/L (11-82)
[2020-09-09 07:54] LABS: Adenovirus Not Detected (Not Detect); Bordetella Pertussis Not Detected (Not Detect); Chlamydophila pneumoniae Not Detected (Not Detect); Coronavirus 229E Not Detected (Not Detect); Coronavirus HKU1 Not Detected (Not Detect); Coronavirus NL63 Not Detected (Not Detect); Coronavirus OC43 Not Detected (Not Detect); Human Metapneumovirus Not Detected (Not Detect); Human Rhinovirus/Enterovirus Not Detected (Not Detect); Influenza A Subtype 2009 H1 Not Detected (Not Detect); Influenza B Not Detected (Not Detect); Mycoplasma pneumoniae Not Detected (Not Detect); Parainfluenza Virus 1 Not Detected (Not Detect); Parainfluenza Virus 2 Not Detected (Not Detect); Parainfluenza Virus 3 Not Detected (Not Detect); Parainfluenza Virus 4 Not Detected (Not Detect); Respiratory Syncytial Virus Not Detected (Not Detect); SARS-CoV-2 Not Detected (Not Detect)
[2020-09-09] MEDS ORDERED: 0.9 % Sodium Chloride 1,000 ML IVC ONE (08:01)
[2020-09-09] MEDS ORDERED: 0.9 % Sodium Chloride 1,000 ML ONE (08:07)
[2020-09-09 09:27] LABS: Bilirubin,Urine Negative (Negative); Blood,Urine Negative (Negative); Clarity,Urine Clear (Clear); Color,Urine Yellow (Yellow); Glucose,Urine (UA) Normal (Normal); Ketones,Urine Negative (Negative); Leukocyte Esterase,Urine Negative (Negative); Nitrite,Urine Negative (Negative); PH,Urine 6.5 pH Units (5.0-8.0); Protein,Urine Negative (Neg-Trace); Specific Gravity,Urine 1.008 (1.010-1.025); Urobilinogen,Urine Normal (Normal)
[2020-09-09] MEDS ORDERED: Naloxone 0.4 MG/ML INJ IVP PRN (10:38)
[2020-09-09] MEDS ORDERED: Ondansetron 4 MG/2 ML VIAL IVP PRN (10:38)
[2020-09-09] MEDS ORDERED: *HR* LORazepam 2 MG/ML VIAL IVP PRN ×3 (10:38)
[2020-09-09 13:56] LABS: BUN/Creatinine Ratio 13 (6-26); Blood Urea Nitrogen 19 mg/dL (8-23); Calcium 9.8 mg/dL (8.6-10.3); Carbon Dioxide 25 mEq/L (23-29); Chloride 96 mEq/L (98-107); Glucose 123 mg/dL (70-105); Osmolality,Calculated 274 (280-300); Potassium 3.6 mEq/L (3.5-5.1); Sodium 130 mEq/L (136-145); eGFR For African Americans > 60 (> 60); eGFR For Non-African Americans 50 (> 60)
[2020-09-09] MEDS: *HR* Heparin 5,000 UNIT/ML VIAL SQ SCH (17:27)
[2020-09-10] MEDS: Acetaminophen 325 MG TABLET PO PRN (04:41)
[2020-09-10] MEDS: *HR* Heparin 5,000 UNIT/ML VIAL SQ SCH ×2 (05:45→16:06)
[2020-09-10 07:09] LABS: Basophils # 0.2 K/mcL (0.0-0.2); Basophils % 1.8 %; Eosinophils # 0.2 K/mcL (0.0-0.6); Eosinophils % 2.4 %; Hematocrit 32.7 % (37.5-50.1); Hemoglobin 10.4 g/dL (12.9-16.9); Immature Granulocytes % 0.3 % (0-4); Lymphocytes # 1.7 K/mcL (0.6-4.6); Lymphocytes % 19.1 %; Mean Corpuscular HGB Conc 31.8 g/dL (31.6-35.5); Mean Corpuscular Hemoglobin 27.2 pg (28.0-33.3); Mean Corpuscular Volume 85.6 fL (83.0-100.0); Monocytes # 1.3 K/mcL (0.0-1.3); Monocytes % 14.4 %; Neutrophils # 5.5 K/mcL (1.6-8.9); Platelet Count 134 K/mcL (140-400); Red Blood Count 3.82 M/mcL (4.19-5.50); Red Cell Distribution Width 19.4 % (11.5-14.5); White Blood Count 8.9 K/mcL (4.3-11.1)
[2020-09-10] MEDS: Thiamine (B-1) 100 MG TABLET PO SCH (07:20)
[2020-09-10] MEDS: Multivit/Ca/Min/Fe/FA 1 TAB TABLET PO SCH (07:20)
[2020-09-10] MEDS: Folic Acid 1 MG TABLET PO SCH (07:21)
[2020-09-10 07:25] LABS: Albumin/Globulin Ratio 0.9 (1.1-2.2); Bilirubin,Indirect 3.1 mg/dL (0.0-1.0); Bilirubin,Total 4.1 mg/dL (0.3-1.0); Globulin 4.5 g/dL (2.4-3.5); Total Protein 8.5 g/dL (6.4-8.9)
[2020-09-10] MEDS ORDERED: Ringers Solution, Lactated 1,000 ML IVC ONE (07:57)
[2020-09-10] MEDS ORDERED: Ringers Solution, Lactated 1,000 ML IVC SCH (08:00)
[2020-09-10 08:39] LABS: BUN/Creatinine Ratio 16 (6-26); Blood Urea Nitrogen 21 mg/dL (8-23); Carbon Dioxide 24 mEq/L (23-29); Chloride 95 mEq/L (98-107); Glucose 125 mg/dL (70-105); Osmolality,Calculated 270 (280-300); Phosphorous 4.2 mg/dL (2.7-4.5); Potassium 3.6 mEq/L (3.5-5.1); Sodium 128 mEq/L (136-145); eGFR For African Americans > 60 (> 60); eGFR For Non-African Americans 55 (> 60)
[2020-09-10 09:55] LABS: INR 1.5; Prothrombin Time 17.2 Seconds (9.4-12.1)
[2020-09-10] MEDS ORDERED: Loratadine 10 MG TABLET PO PRN (11:16)
[2020-09-10] MEDS: Lactulose Oral Soln 20 GM/30 ML UDC PO SCH ×2 (12:52→21:49)
[2020-09-10] MEDS: ARIPiprazole 2 MG TABLET PO SCH (12:52)
[2020-09-11] MEDS: *HR* Heparin 5,000 UNIT/ML VIAL SQ SCH ×2 (06:26→17:07)
[2020-09-11 07:19] LABS: Mean Corpuscular HGB Conc 30.3 g/dL (31.6-35.5); Mean Corpuscular Hemoglobin 26.3 pg (28.0-33.3); Mean Corpuscular Volume 86.8 fL (83.0-100.0); Mean Platelet Volume 9.7 fL (9.4-12.4); Platelet Count 124 K/mcL (140-400); Red Cell Distribution Width 19.6 % (11.5-14.5); White Blood Count 8.6 K/mcL (4.3-11.1)
[2020-09-11 07:47] LABS: BUN/Creatinine Ratio 17 (6-26); Blood Urea Nitrogen 19 mg/dL (8-23); Calcium 10.3 mg/dL (8.6-10.3); Carbon Dioxide 27 mEq/L (23-29); Chloride 99 mEq/L (98-107); Glucose 102 mg/dL (70-105); Osmolality,Calculated 280 (280-300); Potassium 3.7 mEq/L (3.5-5.1); Sodium 134 mEq/L (136-145); eGFR For African Americans > 60 (> 60); eGFR For Non-African Americans > 60 (> 60)
[2020-09-11] MEDS: Folic Acid 1 MG TABLET PO SCH (08:19)
[2020-09-11] MEDS: Multivit/Ca/Min/Fe/FA 1 TAB TABLET PO SCH (08:19)
[2020-09-11] MEDS: Lactulose Oral Soln 20 GM/30 ML UDC PO SCH ×2 (08:29→20:40)
[2020-09-11] MEDS: Thiamine (B-1) 100 MG TABLET PO SCH (08:29)
[2020-09-11] MEDS: ARIPiprazole 2 MG TABLET PO SCH (08:30)
[2020-09-11] MEDS ORDERED: Lidocaine -MPF 2% 2 ML VIAL ONE (12:55)
[2020-09-11] MEDS ORDERED: *HR* Propofol 200 MG/20 ML VIAL IVP ONE (12:55)
[2020-09-11] MEDS: Acetaminophen 325 MG TABLET PO PRN (14:18)
[2020-09-11] MEDS ORDERED: Lidocaine Viscous Oral Soln 15 ML SOLUTION MM PRN (17:45)
[2020-09-12] MEDS: *HR* Heparin 5,000 UNIT/ML VIAL SQ SCH ×2 (05:48→17:18)
[2020-09-12 08:22] LABS: Hematocrit 32.3 % (37.5-50.1)
[2020-09-12] MEDS ORDERED: Albumin Human 5% 12.5 GM/250 ML IV.SOLN IVPB ONE ×2 (08:46→11:00)
[2020-09-12] MEDS ORDERED: Furosemide 20 MG TABLET PO SCH (09:00)
[2020-09-12] MEDS: ARIPiprazole 2 MG TABLET PO SCH (09:09)
[2020-09-12] MEDS: Multivit/Ca/Min/Fe/FA 1 TAB TABLET PO SCH (09:09)
[2020-09-12] MEDS: Thiamine (B-1) 100 MG TABLET PO SCH (09:10)
[2020-09-12] MEDS: Folic Acid 1 MG TABLET PO SCH (09:10)
[2020-09-12] MEDS: Lactulose Oral Soln 20 GM/30 ML UDC PO SCH ×2 (09:10→19:45)
[2020-09-12] MEDS ORDERED: 0.9 % Sodium Chloride 250 ML IV SCH ×2 (10:00→10:15)
[2020-09-12] MEDS ORDERED: 0.9 % Sodium Chloride 250 ML IV ONE (10:15)
[2020-09-13] MEDS: *HR* Heparin 5,000 UNIT/ML VIAL SQ SCH ×2 (05:26→16:32)
[2020-09-13 06:20] LABS: BUN/Creatinine Ratio 15 (6-26); Blood Urea Nitrogen 15 mg/dL (8-23); Calcium 9.8 mg/dL (8.6-10.3); Carbon Dioxide 28 mEq/L (23-29); Chloride 101 mEq/L (98-107); Glucose 124 mg/dL (70-105); Magnesium 2.2 mg/dL (1.6-2.6); Osmolality,Calculated 282 (280-300); Phosphorous 2.9 mg/dL (2.7-4.5); Potassium 4.1 mEq/L (3.5-5.1); Sodium 135 mEq/L (136-145); eGFR For African Americans > 60 (> 60); eGFR For Non-African Americans > 60 (> 60)
[2020-09-13] MEDS: Thiamine (B-1) 100 MG TABLET PO SCH (10:27)
[2020-09-13] MEDS: Lactulose Oral Soln 20 GM/30 ML UDC PO SCH ×2 (10:27→19:37)
[2020-09-13] MEDS: ARIPiprazole 2 MG TABLET PO SCH (10:27)
[2020-09-13] MEDS: Multivit/Ca/Min/Fe/FA 1 TAB TABLET PO SCH (10:27)
[2020-09-13] MEDS: Folic Acid 1 MG TABLET PO SCH (10:28)
[2020-09-13] MEDS ORDERED: 0.9 % Sodium Chloride 1,000 ML IVC SCH (11:00)
[2020-09-13] MEDS: Albumin Human 5% 12.5 GM/250 ML IV.SOLN IVPB PRN ×2 (13:12→17:25)
[2020-09-13 14:10] LABS: Hematocrit 31.1 % (37.5-50.1); Hemoglobin 9.5 g/dL (12.9-16.9)
[2020-09-14 01:59] LABS: Lymphocytes % 19.1 %; Red Cell Distribution Width 19.9 % (11.5-14.5)
[2020-09-14 02:01] LABS: Basophils # 0.1 K/mcL (0.0-0.2); Eosinophils # 0.2 K/mcL (0.0-0.6); Eosinophils % 2.9 %; Hematocrit 31.4 % (37.5-50.1); Hemoglobin 9.5 g/dL (12.9-16.9); Immature Granulocytes % 0.3 % (0-4); Immature Platelets 3.1 % (1.1-6.1); Lymphocytes # 1.1 K/mcL (0.6-4.6); Mean Corpuscular HGB Conc 30.3 g/dL (31.6-35.5); Mean Corpuscular Hemoglobin 26.7 pg (28.0-33.3); Mean Corpuscular Volume 88.2 fL (83.0-100.0); Mean Platelet Volume 10.3 fL (9.4-12.4); Monocytes % 17.4 %; Neutrophils # 3.5 K/mcL (1.6-8.9); Red Blood Count 3.56 M/mcL (4.19-5.50); Segmented Neutrophils % 59.3 %; White Blood Count 5.9 K/mcL (4.3-11.1)
[2020-09-14 02:11] LABS: BUN/Creatinine Ratio 14 (6-26); Blood Urea Nitrogen 12 mg/dL (8-23); Calcium 9.3 mg/dL (8.6-10.3); Carbon Dioxide 27 mEq/L (23-29); Chloride 105 mEq/L (98-107); Glucose 90 mg/dL (70-105); Magnesium 2.1 mg/dL (1.6-2.6); Osmolality,Calculated 281 (280-300); Phosphorous 2.8 mg/dL (2.7-4.5); Potassium 4.2 mEq/L (3.5-5.1); Sodium 136 mEq/L (136-145); eGFR For African Americans > 60 (> 60); eGFR For Non-African Americans > 60 (> 60)
[2020-09-14 02:20] LABS: Platelet Count 74 K/mcL (140-400)
[2020-09-14 02:21] LABS: Anisocytosis 1+ (Not Present); Platelet Estimate Decreased (Normal); Polychromasia 1+ (Not Present)
[2020-09-14] MEDS: *HR* Heparin 5,000 UNIT/ML VIAL SQ SCH (05:05)
[2020-09-14] MEDS: Lactulose Oral Soln 20 GM/30 ML UDC PO SCH (07:54)
[2020-09-14] MEDS: Folic Acid 1 MG TABLET PO SCH (07:55)
[2020-09-14] MEDS: Thiamine (B-1) 100 MG TABLET PO SCH (07:55)
[2020-09-14] MEDS: ARIPiprazole 2 MG TABLET PO SCH (07:55)
[2020-09-14] MEDS: Multivit/Ca/Min/Fe/FA 1 TAB TABLET PO SCH (07:55)
[2020-09-14 11:55] VITALS: BP 130/51
[2020-09-14 12:35] LABS: Thyroid Stimulating Hormone 2.238 mcIU/mL (0.340-5.600)
== END 2020-09-14 14:07 | disposition home or self-care (01) | DRG 433 ==
LOC: EMEROOARM 06:18 → 2ANU 06:18 → SUATTDRO 10:38 → 2ANU 11:23
PROVIDERS: ADMIT Internal Medicine; ATTEND Internal Medicine

== ENCOUNTER 2020-09-29 00:43 | Observation (INO) ==
[2020-09-29 01:49] LABS: Basophils # 0.1 K/mcL (0.0-0.2); Basophils % 1.2 %; Eosinophils # 0.3 K/mcL (0.0-0.6); Eosinophils % 4.1 %; Hematocrit 32.9 % (37.5-50.1); Immature Granulocytes % 0.4 % (0-4); Lymphocytes # 1.4 K/mcL (0.6-4.6); Lymphocytes % 19.1 %; Mean Corpuscular HGB Conc 30.4 g/dL (31.6-35.5); Mean Corpuscular Volume 88.9 fL (83.0-100.0); Mean Platelet Volume 9.5 fL (9.4-12.4); Monocytes # 1.2 K/mcL (0.0-1.3); Monocytes % 15.9 %; Neutrophils # 4.4 K/mcL (1.6-8.9); Platelet Count 112 K/mcL (140-400); Red Cell Distribution Width 20.1 % (11.5-14.5); Segmented Neutrophils % 59.3 %; White Blood Count 7.5 K/mcL (4.3-11.1)
[2020-09-29 01:54] LABS: INR 1.4; Prothrombin Time 15.6 Seconds (9.4-12.1)
[2020-09-29 01:56] LABS: Activated Partial Thrombo Time 25.1 Seconds (26.0-36.0)
[2020-09-29 02:11] LABS: Alanine Aminotransferase 38 Units/L (7-52); Albumin 3.5 g/dL (3.5-5.7); Albumin/Globulin Ratio 0.8 (1.1-2.2); Alkaline Phosphatase 97 Units/L (34-104); Aspartate Amino Transferase 51 Units/L (13-39); BUN/Creatinine Ratio 10 (6-26); Bilirubin,Direct 0.7 mg/dL (0.0-0.2); Bilirubin,Indirect 1.5 mg/dL (0.0-1.0); Bilirubin,Total 2.2 mg/dL (0.3-1.0); Blood Urea Nitrogen 13 mg/dL (8-23); Calcium 9.7 mg/dL (8.6-10.3); Carbon Dioxide 24 mEq/L (23-29); Chloride 108 mEq/L (98-107); Globulin 4.4 g/dL (2.4-3.5); Glucose 110 mg/dL (70-105); Lipase 12 Units/L (11-82); Osmolality,Calculated 289 (280-300); Potassium 3.7 mEq/L (3.5-5.1); Sodium 139 mEq/L (136-145); Total Protein 7.9 g/dL (6.4-8.9); eGFR For African Americans > 60 (> 60); eGFR For Non-African Americans 59 (> 60)
[2020-09-29 05:04] LABS: Bacteria,Urine Few per hpf (None-Few); Bilirubin,Urine Negative (Negative); Blood,Urine Negative (Negative); Calcium Oxalate Crystals,Urine Present; Clarity,Urine Turbid (Clear); Color,Urine Yellow (Yellow); Glucose,Urine (UA) Normal (Normal); Hyaline Casts,Urine Many per lpf (None Seen); Ketones,Urine Trace mg/dL (Negative); Leukocyte Esterase,Urine Negative (Negative); Mucus,Urine Moderate per lpf (None-Few); Nitrite,Urine Negative (Negative); Protein,Urine 30 mg/dL (Neg-Trace); RBC,Urine 15-30 per hpf (0-3); Specific Gravity,Urine > 1.030 (1.010-1.025); Squamous Epithelial Cell,Urine Few per hpf (None-Few)
[2020-09-29] MEDS ORDERED: Ondansetron 4 MG/2 ML VIAL IVP PRN (11:17)
[2020-09-29] MEDS ORDERED: Naloxone 0.4 MG/ML INJ IVP PRN (11:17)
[2020-09-29] MEDS: *HR* Heparin 5,000 UNIT/ML VIAL SQ SCH (17:27)
[2020-09-29] MEDS: Lactulose Oral Soln 20 GM/30 ML UDC PO SCH (20:04)
[2020-09-30 01:35] LABS: Basophils # 0.1 K/mcL (0.0-0.2); Basophils % 1.1 %; Eosinophils # 0.2 K/mcL (0.0-0.6); Eosinophils % 3.1 %; Hematocrit 30.6 % (37.5-50.1); Hemoglobin 9.3 g/dL (12.9-16.9); Immature Granulocytes % 0.3 % (0-4); Lymphocytes # 1.3 K/mcL (0.6-4.6); Mean Corpuscular HGB Conc 30.4 g/dL (31.6-35.5); Mean Corpuscular Hemoglobin 26.9 pg (28.0-33.3); Mean Corpuscular Volume 88.4 fL (83.0-100.0); Mean Platelet Volume 10.1 fL (9.4-12.4); Monocytes # 0.9 K/mcL (0.0-1.3); Monocytes % 14.7 %; Neutrophils # 3.8 K/mcL (1.6-8.9); Platelet Count 101 K/mcL (140-400); Red Blood Count 3.46 M/mcL (4.19-5.50); Red Cell Distribution Width 20.2 % (11.5-14.5); Segmented Neutrophils % 59.8 %; White Blood Count 6.4 K/mcL (4.3-11.1)
[2020-09-30 01:42] LABS: Alanine Aminotransferase 32 Units/L (7-52); Albumin 3.1 g/dL (3.5-5.7); Albumin/Globulin Ratio 0.8 (1.1-2.2); Alkaline Phosphatase 81 Units/L (34-104); Aspartate Amino Transferase 43 Units/L (13-39); BUN/Creatinine Ratio 11 (6-26); Bilirubin,Total 2.1 mg/dL (0.3-1.0); Blood Urea Nitrogen 10 mg/dL (8-23); Carbon Dioxide 24 mEq/L (23-29); Chloride 107 mEq/L (98-107); Globulin 4.1 g/dL (2.4-3.5); Glucose 110 mg/dL (70-105); Osmolality,Calculated 284 (280-300); Potassium 3.5 mEq/L (3.5-5.1); Sodium 137 mEq/L (136-145); Total Protein 7.2 g/dL (6.4-8.9); eGFR For African Americans > 60 (> 60); eGFR For Non-African Americans > 60 (> 60)
[2020-09-30] MEDS: *HR* Heparin 5,000 UNIT/ML VIAL SQ SCH (05:39)
[2020-09-30] MEDS ORDERED: ARIPiprazole 2 MG TABLET PO SCH (09:00)
[2020-09-30] MEDS ORDERED: Thiamine (B-1) 100 MG TABLET PO SCH (09:00)
[2020-09-30] MEDS ORDERED: Folic Acid 1 MG TABLET PO SCH (09:00)
[2020-09-30] MEDS ORDERED: Vitamin B Complex/Vit C/Vit E 1 EACH TABLET PO SCH (09:00)
[2020-09-30] MEDS ORDERED: Furosemide 20 MG TABLET PO SCH (09:00)
[2020-09-30] MEDS ORDERED: Cholecalciferol (D-3) 1,000 UNIT (25MCG) TABLET PO SCH (09:00)
[2020-09-30] MEDS: Lactulose Oral Soln 20 GM/30 ML UDC PO SCH (09:13)
[2020-09-30] MEDS ORDERED: *HR* LORazepam 2 MG/ML VIAL IVP PRN ×3 (10:10)
[2020-09-30 12:35] VITALS: BP 125/71
== END 2020-09-30 14:55 | disposition left against medical advice (07) ==
LOC: EMEROOARM 00:43 → 3ANU 00:43 → SUATTDRO 09:17 → 3ANU 10:05
PROVIDERS: ADMIT General Practice; ATTEND Internal Medicine

== ENCOUNTER 2020-12-24 15:30 | Observation (INO) ==
[2020-12-24] MEDS ORDERED: Octreotide 50 MCG/ML INJ IVP ONE (15:50)
[2020-12-24] MEDS ORDERED: Pantoprazole 40 MG VIAL IVP ONE ×2 (15:50→16:00)
[2020-12-24] MEDS ORDERED: cefTRIAXone 2,000 MG in Water for inj. (sterile) 20 ML IVP ONE (16:01)
[2020-12-24] MEDS: Octreotide 400 MCG in 0.9 % Sodium Chloride 100 ML IVC SCH (16:20)
[2020-12-24] MEDS ORDERED: Ondansetron 4 MG/2 ML VIAL IVP STA (16:25)
[2020-12-24 16:39] LABS: Basophils # 0.2 K/mcL (0.0-0.2); Basophils % 1.7 %; Eosinophils # 0.3 K/mcL (0.0-0.6); Eosinophils % 3.3 %; Hematocrit 34.4 % (37.5-50.1); Hemoglobin 10.9 g/dL (12.9-16.9); Immature Granulocytes % 0.6 % (0-4); Lymphocytes # 1.6 K/mcL (0.6-4.6); Lymphocytes % 15.5 %; Mean Corpuscular HGB Conc 31.7 g/dL (31.6-35.5); Mean Corpuscular Hemoglobin 27.3 pg (28.0-33.3); Mean Corpuscular Volume 86.2 fL (83.0-100.0); Mean Platelet Volume 9.5 fL (9.4-12.4); Monocytes # 1.4 K/mcL (0.0-1.3); Monocytes % 13.7 %; Neutrophils # 6.7 K/mcL (1.6-8.9); Platelet Count 156 K/mcL (140-400); Red Blood Count 3.99 M/mcL (4.19-5.50); Red Cell Distribution Width 16.8 % (11.5-14.5); Segmented Neutrophils % 65.2 %; White Blood Count 10.3 K/mcL (4.3-11.1)
[2020-12-24 16:52] LABS: INR 1.4; Prothrombin Time 16.2 Seconds (9.4-12.1)
[2020-12-24 16:55] LABS: Activated Partial Thrombo Time 29.7 Seconds (26.0-36.0)
[2020-12-24 17:04] LABS: BUN/Creatinine Ratio 26 (6-26); Blood Urea Nitrogen 20 mg/dL (8-23); Calcium 8.8 mg/dL (8.6-10.3); Carbon Dioxide 27 mEq/L (23-29); Chloride 104 mEq/L (98-107); Glucose 104 mg/dL (70-105); Lipase 17 Units/L (11-82); Osmolality,Calculated 287 (280-300); Potassium 4.2 mEq/L (3.5-5.1); Sodium 137 mEq/L (136-145); eGFR For African Americans > 60 (> 60); eGFR For Non-African Americans > 60 (> 60)
[2020-12-24] MEDS ORDERED: Naloxone 0.4 MG/ML INJ IVP PRN (17:21)
[2020-12-24] MEDS ORDERED: *HR* Phytonadione 5 MG TABLET PO ONE (17:22)
[2020-12-24] MEDS ORDERED: Loratadine 10 MG TABLET PO PRN (17:27)
[2020-12-24] MEDS ORDERED: Thiamine (B-1) 100 MG in 0.9 % Sodium Chloride 50 ML IVPB ONE (17:30)
[2020-12-24 17:44] LABS: Ethanol < 10 mg/dL (Less than 10)
[2020-12-24] MEDS: Ringers Solution, Lactated 1,000 ML IVC SCH (19:14)
[2020-12-24] MEDS: Lactulose Oral Soln 20 GM/30 ML UDC PO SCH (21:34)
[2020-12-25 03:13] LABS: Basophils # 0.1 K/mcL (0.0-0.2); Basophils % 1.2 %; Eosinophils # 0.4 K/mcL (0.0-0.6); Eosinophils % 4.2 %; Hematocrit 31.1 % (37.5-50.1); Hemoglobin 9.8 g/dL (12.9-16.9); Immature Granulocytes % 0.5 % (0-4); Lymphocytes # 1.8 K/mcL (0.6-4.6); Lymphocytes % 20.3 %; Mean Corpuscular HGB Conc 31.5 g/dL (31.6-35.5); Mean Corpuscular Hemoglobin 27.4 pg (28.0-33.3); Mean Corpuscular Volume 86.9 fL (83.0-100.0); Mean Platelet Volume 10.2 fL (9.4-12.4); Monocytes # 1.2 K/mcL (0.0-1.3); Monocytes % 13.6 %; Neutrophils # 5.3 K/mcL (1.6-8.9); Platelet Count 108 K/mcL (140-400); Red Blood Count 3.58 M/mcL (4.19-5.50); Segmented Neutrophils % 60.2 %; White Blood Count 8.8 K/mcL (4.3-11.1)
[2020-12-25 03:19] LABS: INR 1.4; Prothrombin Time 16.5 Seconds (9.4-12.1)
[2020-12-25 03:22] LABS: BUN/Creatinine Ratio 27 (6-26); Blood Urea Nitrogen 21 mg/dL (8-23); Calcium 8.4 mg/dL (8.6-10.3); Carbon Dioxide 23 mEq/L (23-29); Chloride 105 mEq/L (98-107); Glucose 117 mg/dL (70-105); Osmolality,Calculated 286 (280-300); Potassium 3.9 mEq/L (3.5-5.1); Sodium 136 mEq/L (136-145); eGFR For African Americans > 60 (> 60); eGFR For Non-African Americans > 60 (> 60)
[2020-12-25 03:23] LABS: Albumin 2.8 g/dL (3.5-5.7); Albumin/Globulin Ratio 0.8 (1.1-2.2); Bilirubin,Direct 0.8 mg/dL (0.0-0.2); Bilirubin,Indirect 2.4 mg/dL (0.0-1.0); Bilirubin,Total 3.2 mg/dL (0.3-1.0); Globulin 3.7 g/dL (2.4-3.5); Total Protein 6.5 g/dL (6.4-8.9)
[2020-12-25] MEDS: Lactulose Oral Soln 20 GM/30 ML UDC PO SCH ×3 (07:38→19:39)
[2020-12-25] MEDS: Thiamine (B-1) 100 MG TABLET PO SCH (07:38)
[2020-12-25] MEDS: Cholecalciferol (D-3) 1,000 UNIT (25MCG) TABLET PO SCH (07:38)
[2020-12-25] MEDS: Folic Acid 1 MG TABLET PO SCH (07:39)
[2020-12-25] MEDS: ARIPiprazole 2 MG TABLET PO SCH (07:39)
[2020-12-25] MEDS: Vitamin B Complex/Vit C/Vit E 1 EACH TABLET PO SCH (07:39)
[2020-12-25] MEDS ORDERED: Ondansetron 4 MG/2 ML VIAL IVP ONE (08:26)
[2020-12-25] MEDS: Octreotide 400 MCG in 0.9 % Sodium Chloride 100 ML IVC SCH (08:33)
[2020-12-25] MEDS ORDERED: Ondansetron ODT 4 MG TAB.RAPDIS SL PRN (08:41)
[2020-12-25] MEDS ORDERED: Pantoprazole 40 MG VIAL IVP SCH (09:00)
[2020-12-25] MEDS: cefTRIAXone 1,000 MG in Water for inj. (sterile) 10 ML IVP SCH (09:46)
[2020-12-25] MEDS ORDERED: Lidocaine -MPF 2% 2 ML VIAL ONE (10:44)
[2020-12-25] MEDS: Ringers Solution, Lactated 1,000 ML IVC SCH (18:49)
[2020-12-26 02:23] LABS: Mean Corpuscular Hemoglobin 27.4 pg (28.0-33.3); Mean Corpuscular Volume 87.8 fL (83.0-100.0); Red Cell Distribution Width 16.8 % (11.5-14.5)
[2020-12-26 02:25] LABS: Hematocrit 28.8 % (37.5-50.1); Immature Platelets 2.4 % (1.1-6.1); Mean Corpuscular HGB Conc 31.3 g/dL (31.6-35.5); Mean Platelet Volume 10.3 fL (9.4-12.4); Red Blood Count 3.28 M/mcL (4.19-5.50); White Blood Count 8.2 K/mcL (4.3-11.1)
[2020-12-26 02:41] LABS: BUN/Creatinine Ratio 20 (6-26); Blood Urea Nitrogen 17 mg/dL (8-23); Carbon Dioxide 25 mEq/L (23-29); Chloride 110 mEq/L (98-107); Glucose 107 mg/dL (70-105); Osmolality,Calculated 290 (280-300); Potassium 3.7 mEq/L (3.5-5.1); Sodium 139 mEq/L (136-145); eGFR For African Americans > 60 (> 60); eGFR For Non-African Americans > 60 (> 60)
[2020-12-26 06:51] VITALS: BP 105/66
[2020-12-26] MEDS: Thiamine (B-1) 100 MG TABLET PO SCH (08:40)
[2020-12-26] MEDS: Vitamin B Complex/Vit C/Vit E 1 EACH TABLET PO SCH (08:41)
[2020-12-26] MEDS: ARIPiprazole 2 MG TABLET PO SCH (08:41)
[2020-12-26] MEDS: Folic Acid 1 MG TABLET PO SCH (08:41)
[2020-12-26] MEDS: Lactulose Oral Soln 20 GM/30 ML UDC PO SCH (08:42)
[2020-12-26] MEDS: Cholecalciferol (D-3) 1,000 UNIT (25MCG) TABLET PO SCH (08:42)
[2020-12-26] MEDS: cefTRIAXone 1,000 MG in Water for inj. (sterile) 10 ML IVP SCH (08:45)
== END 2020-12-26 09:53 | disposition home or self-care (01) ==
LOC: 2NENU 15:30 → EMEROOARM 15:30 → SUATTDRO 17:32 → 2NENU 18:25
PROVIDERS: ADMIT Internal Medicine; ATTEND Internal Medicine

== ENCOUNTER 2022-03-15 19:00 | Inpatient (IN) ==
[2022-03-15] MEDS ORDERED: *HR* Dextrose 50 % in Water (Syg) 50 ML SYRINGE ONE ×3 (19:06→21:19)
[2022-03-15 19:27] LABS: Hematocrit 33.6 % (37.5-50.1); Lymphocytes # 0.4 K/mcL (0.6-4.6); Mean Corpuscular HGB Conc 29.8 g/dL (31.6-35.5); Mean Corpuscular Hemoglobin 27.5 pg (28.0-33.3); Mean Corpuscular Volume 92.6 fL (83.0-100.0); Mean Platelet Volume 9.1 fL (9.4-12.4); Nucleated Red Blood Cells 5.4 /100 WBC (0); Platelet Count 104 K/mcL (140-400); Red Blood Count 3.63 M/mcL (4.19-5.50); White Blood Count 10.3 K/mcL (4.3-11.1)
[2022-03-15] MEDS ORDERED: 0.9 % Sodium Chloride 1,000 ML IVC ONE ×3 (19:27→21:46)
[2022-03-15 19:32] LABS: INR 2.1; Prothrombin Time 23.2 Seconds (9.4-12.1)
[2022-03-15 19:33] LABS: VBG HCO3 14 mEq/L (21-27); VBG PCO2 36 mmHg (41-51); VBG PO2 55 mmHg (25-50)
[2022-03-15 19:48] LABS: Alanine Aminotransferase 98 Units/L (7-52); Albumin 2.4 g/dL (3.5-5.7); Albumin/Globulin Ratio 0.8 (1.1-2.2); Alkaline Phosphatase 93 Units/L (34-104); Aspartate Amino Transferase 145 Units/L (13-39); BUN/Creatinine Ratio 17 (6-26); Bilirubin,Direct 2.1 mg/dL (0.0-0.2); Bilirubin,Indirect 2.7 mg/dL (0.0-1.0); Bilirubin,Total 4.8 mg/dL (0.3-1.0); Blood Urea Nitrogen 38 mg/dL (8-23); Calcium 8.2 mg/dL (8.6-10.3); Carbon Dioxide 15 mEq/L (23-29); Chloride 97 mEq/L (98-107); Creatine Kinase 174 Units/L (30-223); Ethanol < 10 mg/dL (Less than 10); Globulin 3.2 g/dL (2.4-3.5); Glucose 131 mg/dL (70-105); Osmolality,Calculated 291 (280-300); Sodium 135 mEq/L (136-145); Total Protein 5.6 g/dL (6.4-8.9); Troponin I 0.03 ng/mL (< 0.04); eGFR For African Americans 36 (> 60); eGFR For Non-African Americans 30 (> 60)
[2022-03-15 19:54] LABS: Monocytes # 0.6 K/mcL (0.0-1.3); Neutrophils # 9.3 K/mcL (1.6-8.9)
[2022-03-15 19:55] LABS: Anisocytosis 1+ (Not Present); Large Platelets Present (Not Present); Platelet Estimate Slight Decrease (Normal)
[2022-03-15 20:03] LABS: Acetaminophen < 10 mcg/mL (10-20); Magnesium 2.7 mg/dL (1.6-2.6); Salicylate < 2.5 mg/dL (15.0-30.0)
[2022-03-15] MEDS ORDERED: Albumin 25% 25gram/100mL 25 GM/100 ML IV.SOLN IVPB ONE ×2 (20:05→22:24)
[2022-03-15] MEDS ORDERED: Vancomycin 1,500 MG/265 ML IV.SOLN IVPB ONE (20:22)
[2022-03-15] MEDS ORDERED: Lactulose Oral Soln 20 GM/30 ML UDC PO ONE (20:37)
[2022-03-15 20:57] LABS: Bilirubin,Urine Negative (Negative); Blood,Urine Negative (Negative); Clarity,Urine Clear (Clear); Color,Urine Yellow (Yellow); Glucose,Urine (UA) Normal (Normal); Ketones,Urine Negative (Negative); Leukocyte Esterase,Urine Negative (Negative); Nitrite,Urine Negative (Negative); Protein,Urine Trace mg/dL (Neg-Trace); Specific Gravity,Urine 1.021 (1.010-1.025)
[2022-03-15 21:11] LABS: Amphetamine Screen,Urine Negative ng/mL (Cutoff=1000); Barbiturate Screen,Urine Negative ng/mL (Cutoff=200); Benzodiazepines Screen,Urine Negative ng/mL (Cutoff=200); Cannabinoid Screen,Urine Negative ng/mL (Cutoff = 50); Cocaine Screen,Urine Negative ng/mL (Cutoff= 300); Opiate Screen,Urine Positive ng/mL (Cutoff=300); Phencyclidine Screen,Urine Negative ng/mL (Cutoff=25)
[2022-03-15 21:25] LABS: Adenovirus Not Detected (Not Detect); Bordetella Pertussis Not Detected (Not Detect); Chlamydophila pneumoniae Not Detected (Not Detect); Coronavirus 229E Not Detected (Not Detect); Coronavirus HKU1 Not Detected (Not Detect); Coronavirus NL63 Not Detected (Not Detect); Coronavirus OC43 Not Detected (Not Detect); Human Metapneumovirus Not Detected (Not Detect); Human Rhinovirus/Enterovirus Not Detected (Not Detect); Influenza A Subtype 2009 H1 Not Detected (Not Detect); Influenza B Not Detected (Not Detect); Mycoplasma pneumoniae Not Detected (Not Detect); Parainfluenza Virus 1 Not Detected (Not Detect); Parainfluenza Virus 2 Not Detected (Not Detect); Parainfluenza Virus 3 Not Detected (Not Detect); Parainfluenza Virus 4 Not Detected (Not Detect); Respiratory Syncytial Virus Not Detected (Not Detect); SARS-CoV-2 Not Detected (Not Detect)
[2022-03-15] MEDS ORDERED: WATER IVC ONE ×2 (22:00→23:00)
[2022-03-15] MEDS ORDERED: D5 IVC ONE ×2 (22:00→23:00)
[2022-03-15] MEDS ORDERED: ACETYLCYSTEINE IVC ONE ×2 (22:00→23:00)
[2022-03-15] MEDS ORDERED: Naloxone 0.4 MG/ML INJ IVP PRN (22:26)
[2022-03-15] MEDS ORDERED: Melatonin 3 MG TABLET PO PRN (22:26)
[2022-03-15] MEDS ORDERED: Ondansetron 4 MG/2 ML VIAL IVP PRN (22:26)
[2022-03-15] MEDS ORDERED: D5% in Water 1,000 ML IVC PRN (22:36)
[2022-03-15] MEDS ORDERED: Dextrose Gel 15 GM/37.5 ML TUBE PO PRN ×2 (22:36)
[2022-03-15 23:02] LABS: Lipase 93 Units/L (11-82)
[2022-03-16] MEDS ORDERED: Meropenem 1,000 MG in 0.9 % Sodium Chloride Mini Bag 100 ML IVPB SCH
[2022-03-16] MEDS: Norepinephrine 4 MG/254 ML IV.SOLN IVC SCH ×5 (00:59→20:41)
[2022-03-16] MEDS ORDERED: ACETYLCYSTEINE IVC ONE (03:00)
[2022-03-16] MEDS ORDERED: WATER IVC ONE (03:00)
[2022-03-16] MEDS ORDERED: D5 IVC ONE (03:00)
[2022-03-16 06:17] LABS: Immature Granulocytes % 0.2 % (0-4); Mean Corpuscular Hemoglobin 27.4 pg (28.0-33.3); Nucleated Red Blood Cells 1.5 /100 WBC (0); Red Blood Count 2.88 M/mcL (4.19-5.50)
[2022-03-16 06:19] LABS: Basophils # 0.1 K/mcL (0.0-0.2); Basophils % 0.4 %; Eosinophils # 0.1 K/mcL (0.0-0.6); Eosinophils % 0.7 %; Hematocrit 26.8 % (37.5-50.1); Hemoglobin 7.9 g/dL (12.9-16.9); Lymphocytes # 0.7 K/mcL (0.6-4.6); Lymphocytes % 5.4 %; Mean Corpuscular HGB Conc 29.5 g/dL (31.6-35.5); Mean Corpuscular Volume 93.1 fL (83.0-100.0); Mean Platelet Volume 10.1 fL (9.4-12.4); Monocytes # 0.6 K/mcL (0.0-1.3); Monocytes % 4.8 %; Neutrophils # 10.9 K/mcL (1.6-8.9); Red Cell Distribution Width 18.5 % (11.5-14.5); Segmented Neutrophils % 88.5 %; White Blood Count 12.3 K/mcL (4.3-11.1)
[2022-03-16 06:21] LABS: Platelet Count 52 K/mcL (140-400)
[2022-03-16 06:27] LABS: INR 3.4; Prothrombin Time 37.2 Seconds (9.4-12.1)
[2022-03-16 06:36] LABS: Albumin 2.6 g/dL (3.5-5.7); Albumin/Globulin Ratio 1.1 (1.1-2.2); Bilirubin,Total 5.5 mg/dL (0.3-1.0); Globulin 2.3 g/dL (2.4-3.5); Magnesium 2.4 mg/dL (1.6-2.6); Phosphorous 6.4 mg/dL (2.7-4.5); Potassium 5.2 mEq/L (3.5-5.1); Total Protein 4.9 g/dL (6.4-8.9)
[2022-03-16 06:59] LABS: Anisocytosis 1+ (Not Present); Hypochromasia Present (Not Present); Platelet Estimate Decreased (Normal)
[2022-03-16] MEDS ORDERED: D5% in 0.9% NACL 1,000 ML IVC SCH (07:30)
[2022-03-16] MEDS: Cefepime HCl 2,000 MG in 0.9 % Sodium Chloride 10 ML IVP SCH ×2 (08:56→20:30)
[2022-03-16] MEDS: Lactulose Oral Soln 20 GM/30 ML UDC PO SCH ×3 (08:56→20:40)
[2022-03-16] MEDS: Pantoprazole 40 MG VIAL IVP SCH (08:56)
[2022-03-16] MEDS ORDERED: D10% in Water 500 ML IVC SCH (09:00)
[2022-03-16] MEDS: D10% in Water 500 ML IVC SCH ×4 (09:44→21:50)
[2022-03-16 13:50] LABS: Calcium 8.1 mg/dL (8.6-10.3); Potassium 4.9 mEq/L (3.5-5.1)
[2022-03-16 14:02] LABS: Thyroid Stimulating Hormone 0.681 mcIU/mL (0.340-5.600)
[2022-03-16] MEDS: Albumin 25% 25gram/100mL 25 GM/100 ML IV.SOLN IVPB SCH ×2 (16:41→21:11)
[2022-03-16] MEDS ORDERED: *HR* Metoprolol 5 MG/5 ML VIAL IVP ONE (16:57)
[2022-03-16] MEDS: *HR* Metoprolol 5 MG/5 ML VIAL IVP SCH (17:00)
[2022-03-16] MEDS ORDERED: *HR* LORazepam 2 MG/ML VIAL IVP PRN (17:18)
[2022-03-16 17:28] LABS: A.calcoaceticus-baumannii cplx Not Detected (Not Detect); Bacteroides fragilis by PCR Not Detected (Not Detect); Enterobacter cloacae Cmplx PCR Not Detected (Not Detect); Enterobacterales by PCR Not Detected (Not Detect); Enterococcus faecalis by PCR Not Detected (Not Detect); Enterococcus faecium by PCR Not Detected (Not Detect); Escherichia coli by PCR Not Detected (Not Detect); Klebsiella aerogenes by PCR Not Detected (Not Detect); Klebsiella oxytoca by PCR Not Detected (Not Detect); Staph epidermidis by PCR Not Detected (Not Detect); Staph lugdunensis by PCR Not Detected (Not Detect); Staphylococcus aureus by PCR Not Detected (Not Detect); Staphylococcus by PCR DETECTED (Not Detect); Streptococcus agalactiae(B)PCR Not Detected (Not Detect); Streptococcus by PCR Not Detected (Not Detect); Streptococcus pneumoniae PCR Not Detected (Not Detect); Streptococcus pyogenes (A) PCR Not Detected (Not Detect)
[2022-03-16 17:29] LABS: Candida albicans by PCR Not Detected (Not Detect); Candida auris by PCR Not Detected (Not Detect); Candida glabrata by PCR Not Detected (Not Detect); Candida krusei by PCR Not Detected (Not Detect); Candida parapsilosis by PCR Not Detected (Not Detect); Candida tropicalis by PCR Not Detected (Not Detect); Crypto. neoformans/gattii PCR Not Detected (Not Detect); Klebs. pneumoniae group by PCR Not Detected (Not Detect); Proteus by PCR Not Detected (Not Detect); Pseudomonas aeruginosa by PCR Not Detected (Not Detect); Salmonella species by PCR Not Detected (Not Detect); Serratia marcescens by PCR Not Detected (Not Detect); Stenotrophomonas maltophilia Not Detected (Not Detect)
[2022-03-16] MEDS ORDERED: Folic Acid 1 MG in 0.9 % Sodium Chloride 50 ML IVPB SCH (17:30)
[2022-03-16] MEDS ORDERED: Perflutren Lipid Microsphere 1.3 ML in 0.9 % Sodium Chloride 8.7 ML IVP PRN (17:35)
[2022-03-16] MEDS: methylPREDNISolone 125 MG/2 ML VIAL IVP SCH (17:59)
[2022-03-16] MEDS: Thiamine (B-1) 100 MG, Folic Acid 1 MG, MVI, adult with vitamin K 10 ML in 0.9 % Sodi... IVPB SCH (18:01)
[2022-03-16] MEDS ORDERED: Furosemide 40 MG/4 ML VIAL IVP ONE (18:45)
[2022-03-16] MEDS: Dexmedetomidine HCl 400 MCG/100 ML MLS IVC SCH (18:52)
[2022-03-16 21:48] LABS: INR 3.9
[2022-03-16 21:59] LABS: Prothrombin Time 43.4 Seconds (9.4-12.1)
[2022-03-16] MEDS ORDERED: 0.9 % Sodium Chloride 250 ML ONE (22:14)
[2022-03-17] MEDS: methylPREDNISolone 125 MG/2 ML VIAL IVP SCH ×4 (00:32→23:55)
[2022-03-17] MEDS: *HR* Metoprolol 5 MG/5 ML VIAL IVP SCH ×4 (00:32→18:38)
[2022-03-17] MEDS: Norepinephrine 4 MG/254 ML IV.SOLN IVC SCH ×5 (00:33→20:21)
[2022-03-17] MEDS: Dexmedetomidine HCl 400 MCG/100 ML MLS IVC SCH ×5 (02:32→22:57)
[2022-03-17] MEDS ORDERED: Furosemide 40 MG/4 ML VIAL IVP ONE (02:45)
[2022-03-17 03:59] LABS: BUN/Creatinine Ratio 39 (6-26); Blood Urea Nitrogen 54 mg/dL (8-23); Calcium 8.2 mg/dL (8.6-10.3); Carbon Dioxide 27 mEq/L (23-29); Chloride 103 mEq/L (98-107); Glucose 159 mg/dL (70-105); Osmolality,Calculated 304 (280-300); Potassium 4.8 mEq/L (3.5-5.1); Sodium 138 mEq/L (136-145); eGFR For African Americans > 60 (> 60); eGFR For Non-African Americans 52 (> 60)
[2022-03-17 04:11] LABS: Hemoglobin 6.9 g/dL (12.9-16.9); Red Cell Distribution Width 18.2 % (11.5-14.5)
[2022-03-17 04:13] LABS: Hematocrit 22.1 % (37.5-50.1); Immature Platelets 6.1 % (1.1-6.1); Mean Corpuscular HGB Conc 31.2 g/dL (31.6-35.5); Mean Corpuscular Hemoglobin 27.3 pg (28.0-33.3); Mean Corpuscular Volume 87.4 fL (83.0-100.0); Mean Platelet Volume 10.3 fL (9.4-12.4); Red Blood Count 2.53 M/mcL (4.19-5.50); White Blood Count 11.7 K/mcL (4.3-11.1)
[2022-03-17 04:15] LABS: Thyroid Stimulating Hormone 0.758 mcIU/mL (0.340-5.600)
[2022-03-17] MEDS ORDERED: 0.9 % Sodium Chloride 250 ML ONE (05:54)
[2022-03-17] MEDS ORDERED: 0.9 % Sodium Chloride 250 ML IVC SCH (06:00)
[2022-03-17 07:09] LABS: INR 3.2; Prothrombin Time 35.7 Seconds (9.4-12.1)
[2022-03-17 07:11] LABS: Activated Partial Thrombo Time 33.5 Seconds (26.0-36.0)
[2022-03-17] MEDS: Lactulose Oral Soln 20 GM/30 ML UDC PO SCH (09:28)
[2022-03-17] MEDS: Albumin 25% 25gram/100mL 25 GM/100 ML IV.SOLN IVPB SCH ×3 (09:37→23:56)
[2022-03-17] MEDS: Cefepime HCl 2,000 MG in 0.9 % Sodium Chloride 10 ML IVP SCH ×2 (09:38→22:07)
[2022-03-17] MEDS: Pantoprazole 40 MG VIAL IVP SCH (09:38)
[2022-03-17 14:05] LABS: Albumin 2.8 g/dL (3.5-5.7); Albumin/Globulin Ratio 1.5 (1.1-2.2); Bilirubin,Direct 3.4 mg/dL (0.0-0.2); Bilirubin,Indirect 3.5 mg/dL (0.0-1.0); Bilirubin,Total 6.9 mg/dL (0.3-1.0); Globulin 1.9 g/dL (2.4-3.5); Total Protein 4.7 g/dL (6.4-8.9)
[2022-03-17 15:04] LABS: Hematocrit 20.9 % (37.5-50.1); Nucleated Red Blood Cells 0.3 /100 WBC (0)
[2022-03-17 15:06] LABS: Hemoglobin 6.6 g/dL (12.9-16.9); Immature Platelets 7.1 % (1.1-6.1); Mean Corpuscular HGB Conc 31.6 g/dL (31.6-35.5); Mean Corpuscular Hemoglobin 27.6 pg (28.0-33.3); Mean Corpuscular Volume 87.4 fL (83.0-100.0); Mean Platelet Volume 10.8 fL (9.4-12.4); Red Blood Count 2.39 M/mcL (4.19-5.50); Red Cell Distribution Width 17.7 % (11.5-14.5); White Blood Count 18.3 K/mcL (4.3-11.1)
[2022-03-17 15:07] LABS: Platelet Count 32 K/mcL (140-400)
[2022-03-17 15:53] LABS: Anisocytosis 1+ (Not Present); Lymphocytes # 0.4 K/mcL (0.6-4.6); Neutrophils # 17.9 K/mcL (1.6-8.9); Platelet Estimate Marked Decrease (Normal); Polychromasia 1+ (Not Present)
[2022-03-17 15:55] LABS: Dohle Bodies Present (Not Present); Poikilocytosis 1+ (Not Present)
[2022-03-17] MEDS: Furosemide 40 MG/4 ML VIAL IVP SCH (18:38)
[2022-03-17] MEDS: Thiamine (B-1) 100 MG, Folic Acid 1 MG, MVI, adult with vitamin K 10 ML in 0.9 % Sodi... IVPB SCH (18:45)
[2022-03-17] MEDS ORDERED: Amiodarone Premix 360 MG/200 ML BAG IVC ONE ×2 (19:06→19:07)
[2022-03-17] MEDS ORDERED: Amiodarone Premix 150 MG/100 ML BAG IVPB ONE ×2 (19:07)
[2022-03-17] MEDS: Lactulose 200 GM, Sodium Chloride IRRigation 700 ML RC SCH (22:10)
[2022-03-17] MEDS: Phenylephrine 20 MG in 0.9 % Sodium Chloride 250 ML IVC SCH (22:51)
[2022-03-18] MEDS: *HR* Metoprolol 5 MG/5 ML VIAL IVP SCH ×2 (00:10→05:54)
[2022-03-18 00:13] LABS: Basophils # 0.1 K/mcL (0.0-0.2); Basophils % 0.2 %; Hematocrit 20.6 % (37.5-50.1); Hemoglobin 6.6 g/dL (12.9-16.9); Immature Granulocytes % 0.3 % (0-4); Immature Platelets 6.6 % (1.1-6.1); Lymphocytes # 0.4 K/mcL (0.6-4.6); Lymphocytes % 1.7 %; Mean Corpuscular Volume 87.3 fL (83.0-100.0); Monocytes # 0.9 K/mcL (0.0-1.3); Monocytes % 3.9 %; Neutrophils # 21.7 K/mcL (1.6-8.9); Nucleated Red Blood Cells 0.4 /100 WBC (0); Red Blood Count 2.36 M/mcL (4.19-5.50); Segmented Neutrophils % 93.9 %; White Blood Count 23.1 K/mcL (4.3-11.1)
[2022-03-18 00:15] LABS: Platelet Count 37 K/mcL (140-400)
[2022-03-18 00:54] LABS: Anisocytosis 1+ (Not Present); Platelet Estimate Marked Decrease (Normal); Polychromasia 1+ (Not Present)
[2022-03-18] MEDS ORDERED: Furosemide 20 MG/2 ML VIAL IVP ONE (00:58)
[2022-03-18] MEDS ORDERED: 0.9 % Sodium Chloride 250 ML IVC SCH ×2 (01:00)
[2022-03-18] MEDS ORDERED: 0.9 % Sodium Chloride 500 ML ONE (01:06)
[2022-03-18] MEDS: Amiodarone Premix 360 MG/200 ML BAG IVC SCH ×2 (01:09→23:39)
[2022-03-18] MEDS: Dexmedetomidine HCl 400 MCG/100 ML MLS IVC SCH ×4 (03:32→21:31)
[2022-03-18] MEDS: Furosemide 40 MG/4 ML VIAL IVP SCH ×2 (05:47→16:41)
[2022-03-18] MEDS: Phenylephrine 20 MG in 0.9 % Sodium Chloride 250 ML IVC SCH (06:12)
[2022-03-18 06:31] LABS: VBG Ionized Calcium 1.07 mmol/L (1.15-1.35)
[2022-03-18 06:31] LABS: Basophils # 0.1 K/mcL (0.0-0.2); Basophils % 0.2 %; Eosinophils % 0.1 %; Hematocrit 22.7 % (37.5-50.1); Hemoglobin 7.4 g/dL (12.9-16.9); Immature Granulocytes % 0.3 % (0-4); Immature Platelets 6.8 % (1.1-6.1); Lymphocytes # 0.5 K/mcL (0.6-4.6); Mean Corpuscular HGB Conc 32.6 g/dL (31.6-35.5); Mean Corpuscular Hemoglobin 28.9 pg (28.0-33.3); Mean Corpuscular Volume 88.7 fL (83.0-100.0); Mean Platelet Volume 10.8 fL (9.4-12.4); Monocytes % 4.5 %; Neutrophils # 21.5 K/mcL (1.6-8.9); Nucleated Red Blood Cells 0.4 /100 WBC (0); Red Blood Count 2.56 M/mcL (4.19-5.50); Red Cell Distribution Width 17.8 % (11.5-14.5); Segmented Neutrophils % 92.9 %; White Blood Count 23.1 K/mcL (4.3-11.1)
[2022-03-18 06:32] LABS: Platelet Count 31 K/mcL (140-400)
[2022-03-18 07:26] LABS: Calcium 8.4 mg/dL (8.6-10.3); Potassium 4.9 mEq/L (3.5-5.1)
[2022-03-18] MEDS ORDERED: Calcium Gluconate 1gm/50mL 1 GM/50 ML BAG IVPB PRN (07:59)
[2022-03-18] MEDS ORDERED: Potassium Chloride 40 MEQ/200 ML BAG IVPB PRN (07:59)
[2022-03-18] MEDS: Albumin 25% 25gram/100mL 25 GM/100 ML IV.SOLN IVPB SCH ×3 (08:34→23:39)
[2022-03-18] MEDS: Pantoprazole 40 MG VIAL IVP SCH ×2 (08:35→21:10)
[2022-03-18] MEDS: Calcium Gluconate 1gm/50mL 1 GM/50 ML BAG IVPB SCH ×2 (08:35→11:57)
[2022-03-18] MEDS: methylPREDNISolone 125 MG/2 ML VIAL IVP SCH ×3 (08:35→23:37)
[2022-03-18] MEDS: Cefepime HCl 2,000 MG in 0.9 % Sodium Chloride 10 ML IVP SCH ×2 (08:36→21:10)
[2022-03-18] MEDS: Octreotide 400 MCG in 0.9 % Sodium Chloride 100 ML IVC SCH ×3 (08:36→21:08)
[2022-03-18 09:10] LABS: Nucleated Red Blood Cells 0.4 /100 WBC (0); Red Cell Distribution Width 17.4 % (11.5-14.5)
[2022-03-18 09:12] LABS: Hematocrit 21.8 % (37.5-50.1); Hemoglobin 6.8 g/dL (12.9-16.9); Immature Platelets 6.9 % (1.1-6.1); Mean Corpuscular HGB Conc 31.2 g/dL (31.6-35.5); Mean Corpuscular Hemoglobin 27.8 pg (28.0-33.3); Mean Platelet Volume 10.7 fL (9.4-12.4); Red Blood Count 2.45 M/mcL (4.19-5.50); White Blood Count 21.5 K/mcL (4.3-11.1)
[2022-03-18 09:18] LABS: Platelet Count 30 K/mcL (140-400)
[2022-03-18 09:18] LABS: INR 3.5; Prothrombin Time 38.5 Seconds (9.4-12.1)
[2022-03-18 09:29] LABS: Calcium 7.6 mg/dL (8.6-10.3); Potassium 4.5 mEq/L (3.5-5.1)
[2022-03-18] MEDS: Lactulose 200 GM, Sodium Chloride IRRigation 700 ML RC SCH (10:30)
[2022-03-18] MEDS ORDERED: *HR* Metoprolol 5 MG/5 ML VIAL IVP PRN (11:05)
[2022-03-18] MEDS: Vancomycin 1,500 MG/265 ML IV.SOLN IVPB SCH (11:56)
[2022-03-18 11:58] LABS: Anisocytosis 1+ (Not Present); Dohle Bodies Present (Not Present); Lymphocytes # 0.7 K/mcL (0.6-4.6); Monocytes # 0.4 K/mcL (0.0-1.3); Neutrophils # 20.4 K/mcL (1.6-8.9); Platelet Estimate Marked Decrease (Normal); Toxic Granulation Present (Not Present)
[2022-03-18 11:59] LABS: Polychromasia 1+ (Not Present)
[2022-03-18 13:39] LABS: Hepatitis B Surface Antigen Nonreactive (Nonreactive)
[2022-03-18 13:57] LABS: Hematocrit 21.2 % (37.5-50.1); Hemoglobin 6.8 g/dL (12.9-16.9)
[2022-03-18 14:07] LABS: Hepatitis C Virus Antibody Nonreactive (Nonreactive)
[2022-03-18 14:08] LABS: Hepatitis B Core IgM Nonreactive (Nonreactive)
[2022-03-18 14:10] LABS: Hepatitis A Antibody IgM Nonreactive (Nonreactive)
[2022-03-18 14:11] LABS: Alanine Aminotransferase > 5000 Units/L (7-52); Albumin 2.3 g/dL (3.5-5.7); Albumin/Globulin Ratio 1.4 (1.1-2.2); Alkaline Phosphatase 124 Units/L (34-104); Aspartate Amino Transferase 816 Units/L (13-39); Bilirubin,Direct 4.1 mg/dL (0.0-0.2); Bilirubin,Indirect 4.9 mg/dL (0.0-1.0); Globulin 1.6 g/dL (2.4-3.5); Magnesium 2.3 mg/dL (1.6-2.6); Phosphorous 2.5 mg/dL (2.7-4.5); Total Protein 3.9 g/dL (6.4-8.9)
[2022-03-18] MEDS ORDERED: *HR* FentaNYL (PF) 100 MCG/2 ML VIAL ONE ×2 (15:12→16:23)
[2022-03-18] MEDS ORDERED: *HR* FentaNYL (PF) 100 MCG/2 ML VIAL IVP ONE (15:15)
[2022-03-18] MEDS ORDERED: *HR* Propofol 200 MG/20 ML VIAL IVP ONE ×2 (15:15→15:18)
[2022-03-18] MEDS ORDERED: *HR* Midazolam HCl 2 MG/2 ML VIAL IVP ONE (15:18)
[2022-03-18] MEDS ORDERED: *HR* Etomidate 20 MG/10 ML AMPUL IVP ONE ×2 (15:18→15:19)
[2022-03-18] MEDS ORDERED: Artificial Tears SOLN 15 ML BOTTLE BOTH EYES PRN (15:33)
[2022-03-18 16:00] LABS: ABG Base Excess -3 mEq/L (-2 to 3); ABG HCO3 23 mEq/L (21-27); ABG Oxygen Saturation 93 % (95-98); ABG PCO2 45 mmHg (35-45); ABG PH 7.33 pH Units (7.32-7.45); ABG PO2 71 mmHg (85-104); ABG TCO2 25 mEq/L (20-26); Blood Gas Modality AF; Blood Gas VT 500 cc
[2022-03-18] MEDS ORDERED: *HR* Midazolam HCl 5 MG/5 ML VIAL IVP ONE ×5 (16:06→17:37)
[2022-03-18] MEDS: Norepinephrine 4 MG/254 ML IV.SOLN IVC SCH ×2 (16:39→22:09)
[2022-03-18] MEDS: FentaNYL (PF) 1,000 MCG/100 ML IV.SOLN IVC SCH ×3 (16:40→21:50)
[2022-03-18] MEDS: MetroNIDAZOLE 500 MG/100 ML 500 MG/100 ML BAG IVPB SCH ×2 (16:46→21:08)
[2022-03-18] MEDS ORDERED: *HR* Midazolam HCl 5 MG/5 ML VIAL IVP PRN (18:12)
[2022-03-18] MEDS ORDERED: *HR* Propofol 200 MG/20 ML VIAL IVP SCH (18:15)
[2022-03-18] MEDS: Artificial Tears SOLN 15 ML BOTTLE BOTH EYES SCH ×2 (19:58→20:03)
[2022-03-18] MEDS: Thiamine (B-1) 100 MG, Folic Acid 1 MG, MVI, adult with vitamin K 10 ML in 0.9 % Sodi... IVPB SCH (19:59)
[2022-03-18] MEDS: Chlorhexidine Rinse 15 ML MOUTHWASH MM SCH (21:08)
[2022-03-18] MEDS: Lactulose Oral Soln 20 GM/30 ML UDC PO SCH (21:11)
[2022-03-18 22:05] LABS: Hematocrit 24.6 % (37.5-50.1)
[2022-03-19] MEDS: Artificial Tears SOLN 15 ML BOTTLE BOTH EYES SCH ×11 (00:24→23:17)
[2022-03-19] MEDS: FentaNYL (PF) 1,000 MCG/100 ML IV.SOLN IVC SCH ×4 (03:48→19:00)
[2022-03-19 03:50] LABS: White Blood Count 16.9 K/mcL (4.3-11.1)
[2022-03-19] MEDS: MetroNIDAZOLE 500 MG/100 ML 500 MG/100 ML BAG IVPB SCH ×3 (03:50→20:21)
[2022-03-19 03:51] LABS: Hemoglobin 8.5 g/dL (12.9-16.9); Immature Platelets 4.9 % (1.1-6.1); Mean Corpuscular Hemoglobin 32.9 pg (28.0-33.3); Mean Corpuscular Volume 89.1 fL (83.0-100.0); Mean Platelet Volume 12.6 fL (9.4-12.4); Nucleated Red Blood Cells 0.4 /100 WBC (0); Red Blood Count 2.58 M/mcL (4.19-5.50); Red Cell Distribution Width 17.8 % (11.5-14.5)
[2022-03-19 03:58] LABS: INR 3.8; Prothrombin Time 41.6 Seconds (9.4-12.1)
[2022-03-19 04:01] LABS: ABG Base Excess 3 mEq/L (-2 to 3); ABG HCO3 29 mEq/L (21-27); ABG Oxygen Saturation 95 % (95-98); ABG PCO2 52 mmHg (35-45); ABG PH 7.36 pH Units (7.32-7.45); ABG PO2 79 mmHg (85-104); ABG TCO2 31 mEq/L (20-26); Blood Gas VT 500 cc
[2022-03-19 04:04] LABS: Platelet Count 34 K/mcL (140-400)
[2022-03-19 04:36] LABS: Lymphocytes # 1.4 K/mcL (0.6-4.6); Neutrophils # 14.5 K/mcL (1.6-8.9); Platelet Estimate Decreased (Normal)
[2022-03-19 05:04] LABS: Albumin 3.1 g/dL (3.5-5.7); Albumin/Globulin Ratio 2.8 (1.1-2.2); Bilirubin,Total 9.8 mg/dL (0.3-1.0); Calcium 7.4 mg/dL (8.6-10.3); Globulin 1.1 g/dL (2.4-3.5); Total Protein 4.2 g/dL (6.4-8.9)
[2022-03-19] MEDS: Furosemide 40 MG/4 ML VIAL IVP SCH ×2 (05:05→17:48)
[2022-03-19] MEDS: Octreotide 400 MCG in 0.9 % Sodium Chloride 100 ML IVC SCH ×3 (05:06→23:16)
[2022-03-19] MEDS: Chlorhexidine Rinse 15 ML MOUTHWASH MM SCH ×3 (08:57→20:21)
[2022-03-19] MEDS: methylPREDNISolone 125 MG/2 ML VIAL IVP SCH (08:57)
[2022-03-19] MEDS: Lactulose Oral Soln 20 GM/30 ML UDC PO SCH ×3 (08:57→20:21)
[2022-03-19] MEDS: Vancomycin 1,500 MG/265 ML IV.SOLN IVPB SCH (08:58)
[2022-03-19] MEDS: Albumin 25% 25gram/100mL 25 GM/100 ML IV.SOLN IVPB SCH ×3 (08:58→23:17)
[2022-03-19] MEDS: Cefepime HCl 2,000 MG in 0.9 % Sodium Chloride 10 ML IVP SCH ×2 (08:59→20:21)
[2022-03-19] MEDS: Pantoprazole 40 MG VIAL IVP SCH ×2 (09:00→20:21)
[2022-03-19] MEDS ORDERED: Artificial Tears SOLN 15 ML BOTTLE BOTH EYES PRN (10:25)
[2022-03-19] MEDS: Insulin LISPRO 300 UNITS/3 ML VIAL SUBQ SCH ×3 (11:02→23:19)
[2022-03-19] MEDS: Norepinephrine 4 MG/254 ML IV.SOLN IVC SCH ×2 (19:18→23:08)
[2022-03-19] MEDS: Phenylephrine 20 MG in 0.9 % Sodium Chloride 250 ML IVC SCH (20:22)
[2022-03-19] MEDS: Insulin DETEMIR 100 UNIT/ML X5UNITS SUBQ SCH (20:23)
[2022-03-20] MEDS: Amiodarone Premix 360 MG/200 ML BAG IVC SCH (02:48)
[2022-03-20] MEDS: Artificial Tears SOLN 15 ML BOTTLE BOTH EYES SCH ×8 (02:48→21:51)
[2022-03-20 03:57] LABS: VBG Ionized Calcium 1.01 mmol/L (1.15-1.35)
[2022-03-20 03:59] LABS: Hemoglobin 8.5 g/dL (12.9-16.9)
[2022-03-20 04:01] LABS: Hematocrit 25.7 % (37.5-50.1); Immature Platelets 8.6 % (1.1-6.1); Mean Corpuscular HGB Conc 33.1 g/dL (31.6-35.5); Mean Corpuscular Hemoglobin 30.5 pg (28.0-33.3); Mean Corpuscular Volume 92.1 fL (83.0-100.0); Mean Platelet Volume 11.4 fL (9.4-12.4); Red Blood Count 2.79 M/mcL (4.19-5.50); Red Cell Distribution Width 18.7 % (11.5-14.5); White Blood Count 20.9 K/mcL (4.3-11.1)
[2022-03-20] MEDS: FentaNYL (PF) 1,000 MCG/100 ML IV.SOLN IVC SCH ×4 (04:02→21:08)
[2022-03-20] MEDS: MetroNIDAZOLE 500 MG/100 ML 500 MG/100 ML BAG IVPB SCH ×3 (04:06→21:51)
[2022-03-20 04:08] LABS: INR 3.4; Prothrombin Time 37.5 Seconds (9.4-12.1)
[2022-03-20 04:10] LABS: ABG Base Excess 0 mEq/L (-2 to 3); ABG HCO3 28 mEq/L (21-27); ABG Oxygen Saturation 99 % (95-98); ABG PCO2 71 mmHg (35-45); ABG PH 7.21 pH Units (7.32-7.45); ABG PO2 153 mmHg (85-104); ABG TCO2 31 mEq/L (20-26); Blood Gas VT 500 cc
[2022-03-20 05:28] LABS: Albumin 3.9 g/dL (3.5-5.7); Albumin/Globulin Ratio 2.6 (1.1-2.2); Alkaline Phosphatase 134 Units/L (34-104); Aspartate Amino Transferase 220 Units/L (13-39); Bilirubin,Total 12.2 mg/dL (0.3-1.0); Calcium 8.3 mg/dL (8.6-10.3); Carbon Dioxide 27 mEq/L (23-29); Chloride 104 mEq/L (98-107); Globulin 1.5 g/dL (2.4-3.5); Glucose 159 mg/dL (70-105); Sodium 140 mEq/L (136-145); Total Protein 5.4 g/dL (6.4-8.9); eGFR For African Americans 28 (> 60); eGFR For Non-African Americans 23 (> 60)
[2022-03-20] MEDS ORDERED: Lactulose 200 GM, Sodium Chloride IRRigation 700 ML RC ONE (05:52)
[2022-03-20 06:01] LABS: Alanine Aminotransferase > 5000 Units/L (7-52); Blood Urea Nitrogen > 390 mg/dL (8-23)
[2022-03-20] MEDS: Insulin LISPRO 300 UNITS/3 ML VIAL SUBQ SCH ×4 (06:01→23:51)
[2022-03-20] MEDS: Furosemide 40 MG/4 ML VIAL IVP SCH ×2 (06:06→16:46)
[2022-03-20] MEDS: Chlorhexidine Rinse 15 ML MOUTHWASH MM SCH ×3 (07:29→21:51)
[2022-03-20] MEDS: predniSONE 20 MG TABLET PO SCH (07:29)
[2022-03-20] MEDS: Lactulose Oral Soln 20 GM/30 ML UDC PO SCH ×2 (07:29→16:07)
[2022-03-20] MEDS: Octreotide 400 MCG in 0.9 % Sodium Chloride 100 ML IVC SCH ×2 (07:31→16:42)
[2022-03-20] MEDS: Albumin 25% 25gram/100mL 25 GM/100 ML IV.SOLN IVPB SCH ×2 (07:33→16:41)
[2022-03-20] MEDS: Cefepime HCl 2,000 MG in 0.9 % Sodium Chloride 10 ML IVP SCH (07:33)
[2022-03-20] MEDS: Pantoprazole 40 MG VIAL IVP SCH ×2 (07:33→21:51)
[2022-03-20] MEDS ORDERED: *HR* Dextrose 50 % in Water (Syg) 50 ML SYRINGE IVP ONE (07:44)
[2022-03-20] MEDS ORDERED: Insulin Human Regular 10 UNIT in 0.9 % Sodium Chloride 10 ML IV ONE (07:44)
[2022-03-20] MEDS ORDERED: Calcium Gluconate 1gm/50mL 1 GM/50 ML BAG IVPB ONE (07:44)
[2022-03-20 09:38] LABS: VBG Ionized Calcium 0.98 mmol/L (1.15-1.35)
[2022-03-20] MEDS: cefTRIAXone 2,000 MG in 0.9 % Sodium Chloride Mini Bag 100 ML IVPB SCH (10:28)
[2022-03-20] MEDS ORDERED: 0.9 % Sodium Chloride 1,000 ML PRIME ONE ×2 (11:46)
[2022-03-20] MEDS ORDERED: *HR* Heparin 5,000 UNIT/ML VIAL IVP PRN (11:46)
[2022-03-20] MEDS ORDERED: *HR* Alteplase (Cathflo) 2 MG VIAL IVP PRN (11:46)
[2022-03-20 11:47] LABS: Sodium, Urine 11.4 mEq/L
[2022-03-20] MEDS ORDERED: 0.9 % Sodium Chloride 1,000 ML PRIME SCH (12:00)
[2022-03-20] MEDS ORDERED: Lidocaine/EPI 1:100k 1% 50 ML VIAL ONE (12:44)
[2022-03-20] MEDS ORDERED: Heparin 1,000 UNITS/500 mL 500 ML ONE (12:44)
[2022-03-20] MEDS ORDERED: *HR* Heparin 5,000 UNIT/ML VIAL ONE (13:10)
[2022-03-20] MEDS: Norepinephrine 4 MG/254 ML IV.SOLN IVC SCH (13:17)
[2022-03-20 17:11] LABS: Calcium 8.7 mg/dL (8.6-10.3)
[2022-03-20 17:11] LABS: Calcium 8.5 mg/dL (8.6-10.3); Potassium 6.2 mEq/L (3.5-5.1)
[2022-03-20] MEDS: PrismaSATE BGK 4/2.5 5,000 ML CRRT SCH ×2 (18:11)
[2022-03-20] MEDS ORDERED: Amiodarone Premix 150 MG/100 ML BAG IVPB ONE (18:39)
[2022-03-20] MEDS ORDERED: Amiodarone Premix 360 MG/200 ML BAG IVC ONE (18:41)
[2022-03-20] MEDS: Phenylephrine 100 MG in 0.9 % Sodium Chloride 250 ML IVC SCH (19:54)
[2022-03-20 22:59] LABS: Basophils % 0.2 %
[2022-03-20 23:01] LABS: Immature Platelets 9.2 % (1.1-6.1)
[2022-03-20 23:07] LABS: Basophils # 0.1 K/mcL (0.0-0.2); Hematocrit 25.8 % (37.5-50.1); Hemoglobin 7.6 g/dL (12.9-16.9); Immature Granulocytes % 0.7 % (0-4); Lymphocytes # 0.3 K/mcL (0.6-4.6); Lymphocytes % 1.1 %; Mean Corpuscular HGB Conc 29.5 g/dL (31.6-35.5); Mean Corpuscular Volume 95.2 fL (83.0-100.0); Mean Platelet Volume 11.2 fL (9.4-12.4); Monocytes # 1.3 K/mcL (0.0-1.3); Monocytes % 5.1 %; Neutrophils # 23.7 K/mcL (1.6-8.9); Nucleated Red Blood Cells 0.5 /100 WBC (0); Red Blood Count 2.71 M/mcL (4.19-5.50); Segmented Neutrophils % 92.9 %; White Blood Count 25.5 K/mcL (4.3-11.1)
[2022-03-20] MEDS: Insulin DETEMIR 100 UNIT/ML X5UNITS SUBQ SCH (23:20)
[2022-03-20 23:24] LABS: Platelet Count 38 K/mcL (140-400)
[2022-03-20 23:25] LABS: Platelet Estimate Marked Decrease (Normal)
[2022-03-20 23:26] LABS: Anisocytosis 1+ (Not Present); Hypochromasia Present (Not Present); Toxic Granulation Present (Not Present)
[2022-03-20 23:29] LABS: Activated Partial Thrombo Time > 360.0 Seconds (26.0-36.0); INR 4.4
[2022-03-20 23:30] LABS: Prothrombin Time 48.7 Seconds (9.4-12.1)
[2022-03-20 23:33] LABS: Calcium 8.5 mg/dL (8.6-10.3); Potassium 6.1 mEq/L (3.5-5.1)
[2022-03-21] MEDS: Albumin 25% 25gram/100mL 25 GM/100 ML IV.SOLN IVPB SCH ×3 (00:06→16:33)
[2022-03-21] MEDS: Amiodarone Premix 360 MG/200 ML BAG IVC SCH ×2 (00:06→11:39)
[2022-03-21] MEDS: Artificial Tears SOLN 15 ML BOTTLE BOTH EYES SCH ×6 (00:06→19:32)
[2022-03-21] MEDS: Lactulose Oral Soln 20 GM/30 ML UDC PO SCH ×4 (00:06→17:51)
[2022-03-21] MEDS ORDERED: 0.9 % Sodium Chloride 250 ML ONE ×2 (00:27→02:37)
[2022-03-21] MEDS: PrismaSATE BGK 4/2.5 5,000 ML CRRT SCH ×9 (00:35→14:05)
[2022-03-21] MEDS: Norepinephrine 4 MG/254 ML IV.SOLN IVC SCH ×5 (00:35→07:27)
[2022-03-21] MEDS: Octreotide 400 MCG in 0.9 % Sodium Chloride 100 ML IVC SCH ×3 (01:52→19:33)
[2022-03-21] MEDS: Phenylephrine 100 MG in 0.9 % Sodium Chloride 250 ML IVC SCH ×6 (02:08→19:34)
[2022-03-21 03:41] LABS: ABG Base Excess -16 mEq/L (-2 to 3); ABG HCO3 15 mEq/L (21-27); ABG Oxygen Saturation 98 % (95-98); ABG PCO2 65 mmHg (35-45); ABG PH 6.97 pH Units (7.32-7.45); ABG PO2 150 mmHg (85-104); ABG TCO2 17 mEq/L (20-26); Blood Gas VT 500 cc
[2022-03-21] MEDS: Sodium Bicarbonate 75 MEQ in 0.45 % Sodium Chloride 1,000 ML IVC SCH ×3 (04:33→19:32)
[2022-03-21 05:26] LABS: ABG Base Excess -12 mEq/L (-2 to 3); ABG HCO3 17 mEq/L (21-27); ABG Oxygen Saturation 99 % (95-98); ABG PCO2 53 mmHg (35-45); ABG PH 7.11 pH Units (7.32-7.45); ABG PO2 153 mmHg (85-104); ABG TCO2 18 mEq/L (20-26); Blood Gas VT 500 cc
[2022-03-21] MEDS: FentaNYL (PF) 1,000 MCG/100 ML IV.SOLN IVC SCH ×3 (05:52→21:04)
[2022-03-21] MEDS: MetroNIDAZOLE 500 MG/100 ML 500 MG/100 ML BAG IVPB SCH ×3 (05:53→19:32)
[2022-03-21] MEDS: Furosemide 40 MG/4 ML VIAL IVP SCH ×3 (05:53→17:51)
[2022-03-21] MEDS: *HR* Dextrose 50 % in Water (Syg) 50 ML SYRINGE IVP PRN ×4 (06:05→18:44)
[2022-03-21] MEDS: Insulin LISPRO 300 UNITS/3 ML VIAL SUBQ SCH ×3 (06:05→17:46)
[2022-03-21 06:31] LABS: Hematocrit 27.7 % (37.5-50.1); Hemoglobin 8.2 g/dL (12.9-16.9); Mean Corpuscular HGB Conc 29.6 g/dL (31.6-35.5); Mean Corpuscular Hemoglobin 28.7 pg (28.0-33.3); Mean Corpuscular Volume 96.9 fL (83.0-100.0); Red Blood Count 2.86 M/mcL (4.19-5.50); Red Cell Distribution Width 18.4 % (11.5-14.5)
[2022-03-21 06:33] LABS: Immature Platelets 8.5 % (1.1-6.1); Mean Platelet Volume 11.7 fL (9.4-12.4); White Blood Count 24.5 K/mcL (4.3-11.1)
[2022-03-21 06:39] LABS: Prothrombin Time 32.7 Seconds (9.4-12.1)
[2022-03-21 06:52] LABS: Phosphorous 7.6 mg/dL (2.7-4.5)
[2022-03-21 06:55] LABS: Albumin 4.6 g/dL (3.5-5.7); Albumin/Globulin Ratio 3.1 (1.1-2.2); Bilirubin,Total 11.7 mg/dL (0.3-1.0); Calcium 8.5 mg/dL (8.6-10.3); Globulin 1.5 g/dL (2.4-3.5); Potassium 5.8 mEq/L (3.5-5.1); Total Protein 6.1 g/dL (6.4-8.9)
[2022-03-21] MEDS ORDERED: Norepinephrine 4 MG/254 ML IV.SOLN IVC SCH (07:30)
[2022-03-21] MEDS: Norepinephrine 32 MG/250 ML IV.SOLN IVC SCH ×3 (08:35→17:45)
[2022-03-21] MEDS: Chlorhexidine Rinse 15 ML MOUTHWASH MM SCH ×2 (09:28→19:32)
[2022-03-21] MEDS: Pantoprazole 40 MG VIAL IVP SCH ×2 (09:28→19:32)
[2022-03-21] MEDS: cefTRIAXone 2,000 MG in 0.9 % Sodium Chloride Mini Bag 100 ML IVPB SCH (09:46)
[2022-03-21 10:27] LABS: Hematocrit 25.9 % (37.5-50.1); Hemoglobin 7.8 g/dL (12.9-16.9)
[2022-03-21] MEDS: predniSONE 20 MG TABLET PO SCH (10:50)
[2022-03-21] MEDS: Dexmedetomidine HCl 400 MCG/100 ML MLS IVC SCH (11:54)
[2022-03-21 13:01] VITALS: TEMP 96.9
[2022-03-21] MEDS ORDERED: Insulin Human Regular 10 UNIT in 0.9 % Sodium Chloride 10 ML IV ONE (14:32)
[2022-03-21] MEDS ORDERED: *HR* Dextrose 50 % in Water (Syg) 50 ML SYRINGE IVP ONE (14:32)
[2022-03-21] MEDS ORDERED: Calcium Gluconate 1gm/50mL 1 GM/50 ML BAG IVPB ONE (14:32)
[2022-03-21] MEDS: Insulin DETEMIR 100 UNIT/ML X5UNITS SUBQ SCH (19:12)
[2022-03-21 21:43] VITALS: BP 34/23; PULSE 82; O2SAT 83
== END 2022-03-21 21:58 | disposition expired | DRG 720 ==
LOC: EMEROOARM 19:00 → 2NNU 23:29 → SUATTDRO 23:29 → 2NNU 03-16 00:19 → ICNU 03-16 02:00
PROVIDERS: ADMIT Internal Medicine; ATTEND Internal Medicine